=== PATIENT | female | born 1985 | race Caucasian/White ===

== ENCOUNTER 2020-10-17 14:57 | Emergency (ER) | payer OTHER, SELFPAY ==
[2020-10-17 15:15] VITALS: BP 113/76; PULSE 73; RESP 20; TEMP 36.9; O2SAT 99
[2020-10-17 16:26] LABS: Influenza Control Valid (Valid); SARS-CoV-2 Ag Negative (Negative)
--- NOTE | 2020-10-17 16:30 | ED.URI ---
HPI - URI/Sore Throat General Chief Complaint: Upper Respiratory Infection Stated Complaint: chest congestion, sore throat, vomitting, fever Time Seen by Provider: 10/17/20 15:25 Related Data Home Medications Medication Instructions Recorded Confirmed buspirone 10 mg PO DAILY 10/17/20 10/17/20 Allergies Allergy/AdvReac Type Severity Reaction Status Date / Time No Known Allergies Allergy Verified 10/17/20 15:16 Course Vital Signs Vital signs: Vital Signs Temperature 36.9 C 10/17/20 15:15 Pulse Rate 73 10/17/20 15:15 Respiratory Rate 20 10/17/20 15:15 Blood Pressure 113/76 10/17/20 15:15 Pulse Oximetry 99 10/17/20 15:15 Temperature 36.9 C 10/17/20 15:15 Pulse Rate 73 10/17/20 15:15 Respiratory Rate 20 10/17/20 15:15 Blood Pressure 113/76 10/17/20 15:15 Pulse Oximetry 99 10/17/20 15:15 MDM - URI/Sore Throat Lab Data Labs: Lab Results 10/17/20 10/17/20 Range/Units 15:59 15:59 Influenza Type A Ag Negative (Negative) Influenza Type B Ag Negative (Negative) SARS-CoV-2 Ag (Rapid) Negative (Negative) Grp A Beta Strep Ag Negative Discharge Plan Discharge Clinical Impression: Viral illness Patient Disposition: Home, Self-Care Condition: Stable Instructions: Antibiotic Form, Viral Syndrome (ED) Additional Instructions: Follow up with family doctor as needed Prescriptions: No Action buspirone 10 mg tablet 10 mg PO DAILY RF: 0 Follow-up/Referrals: Geraldo Guerra M.D. [Primary Care Provider] - Stand Alone Forms: Work/School Release IP Time of Disposition: 16:34
[2020-10-17 17:03] VITALS: BP 120/77; PULSE 80; RESP 18; TEMP 36.6; O2SAT 98
== END 2020-10-17 17:04 | disposition home or self-care (01) ==
PROVIDERS: Emergency Provider Emergency Medicine; PCP Family Medicine
DX: B34.9 Viral infection, unspecified (principal); Z20.822 Contact with and (suspected) exposure to COVID-19
CPT/HCPCS: 36415; 87081; 87426; 87804; 87880; 99282; 99283; C9803

== ENCOUNTER 2021-03-28 10:42 | Emergency (ER) | payer OTHER, SELFPAY ==
--- NOTE | ~2021-03-28 | XR_ITS ---
EXAMINATION: XR finger 5th LT min 2V EXAM DATE: 03/28/2021 11:15 INDICATION: Left 5th finger laceration posteriorly. Pain. TECHNIQUE: Left finger frontal, lateral and oblique projections obtained and reviewed. There is no prior study for comparison. FINDINGS: There are no acute left 5th finger fractures or dislocations identified. There is no subcu taneous gas. Laceration suspected over dorsal aspect proximal interphalangeal joint. There are no r adiopaque foreign bodies. IMPRESSION: No acute osseous findings. Reviewed, dictated and finalized at location A. IMPRESSION: No acute osseous findings.
[2021-03-28 10:50] VITALS: BP 100/67; PULSE 92; RESP 20; TEMP 36.8; O2SAT 99
--- NOTE | 2021-03-28 11:03 | ED.WOUNDLAC ---
HPI - Wound/Laceration General Chief Complaint: Wound/Laceration Stated Complaint: L pinky finger lac Source: patient Mode of arrival: ambulatory Limitations: no limitations History of Present Illness HPI narrative: this is 35-year-old female who presents with an injury to the anterior aspect of her left 5th finger that occurred yesterday evening on a cutting blade causing a laceration to the anterior surface of her left 5th finger currently not bleeding the area is painful with good range of motion with no numbness or tingling there is currently no drainage but there is surrounding erythema and tenderness with palpation. Onset (ago): hour(s) Location: other ( left anterior 5th finger) Place: work Patient tetanus UTD: No Context: accidental Associated symptoms: pain Related Data Home Medications Medication Instructions Recorded Confirmed buspirone 10 mg PO DAILY 10/17/20 03/28/21 Allergies Allergy/AdvReac Type Severity Reaction Status Date / Time No Known Allergies Allergy Verified 03/28/21 10:59 Review of Systems Review of Systems: All systems reviewed & are unremarkable except as noted in HPI and below PMFSH Past Medical History Medical History Depression Exam Const: General: no acute distress Orientation/consciousness: patient oriented x3 HENMT: Head: normal to inspection Eyes: Conjunctivae: conjunctivae normal Pupils: Equal, round and reactive pupils present Neck: Neck: normal visual inspection, no lymphadenopathy and no meningeal signs Chest: Chest palpation & inspection: normal inspection of the chest Resp: Effort & Inspection: normal respiratory effort Auscultation: clear to auscultation bilaterally GI: GI Palp: Yes Soft to palpation Skin: General skin exam: normal color Other: healing laceration with no drainage with surrounding erythema anterior surface of her left 5th finger Neuro: General: patient oriented x3 Extrem: General: normal to inspection and no pedal edema Psych: Mental Status: mental status grossly normal Course Course Emergency Course: xray reviewed with patient, dated patient with some tetanus and will send antibiotics to her pharmacy. Critical Care Time Critical Care Time Critical Care Time: No Discharge Plan Discharge Clinical Impression: Laceration Cellulitis Qualifiers: Site of cellulitis: extremity Site of cellulitis of extremity: finger Laterality: left Qualified Code(s): L03.012 - Cellulitis of left finger Patient Disposition: Home, Self-Care Condition: Stable Instructions: Antibiotic Form, Laceration (ED), Cellulitis (ED) Additional Instructions: advised to take medicine as prescribed and follow-up with primary care physician if symptoms persist or worsen. Prescriptions: New amoxicillin-pot clavulanate [Augmentin] 875-125 mg tablet 1 tablet PO Q12H Qty: 20 RF: 0 No Action buspirone 10 mg tablet 10 mg PO DAILY RF: 0 Follow-up/Referrals: Geraldo Guerra M.D. [Primary Care Provider] - Stand Alone Forms: Work/School Release IP
[2021-03-28] MEDS: TETANUS,DIPHTHERIA,AC PERTUSSIS ADULT 0.5 ML (ADACEL) IM (11:16)
[2021-03-28 11:44] VITALS: BP 100/67; PULSE 92; RESP 20; TEMP 36.8; O2SAT 99
== END 2021-03-28 11:46 | disposition home or self-care (01) ==
PROVIDERS: Emergency Provider Emergency Medicine; PCP Family Medicine
DX: S61.217A Laceration without foreign body of left little finger without damage to nail, initial encounter (principal); W45.8XXA Other foreign body or object entering through skin, initial encounter; L03.012 Cellulitis of left finger
CPT/HCPCS: 73140; 90471; 90715; 99283

== ENCOUNTER 2021-05-13 13:59 | Outpatient (CLI) | payer OTHER, SELFPAY ==
--- NOTE | ~2021-05-13 | XR_ITS ---
EXAMINATION: XR chest 2V DATE: 05/13/2021 14:37 INDICATION: Fatigue. Headache. Goiter. TECHNIQUE: Frontal and lateral views of the chest were obtained. COMPARISON: Chest 2 views 02/05/2008 FINDINGS: The chest demonstrates clear lungs without pneumonia, pleural effusion, or pneumothorax. Th e heart size is normal. IMPRESSION: 1. No acute cardiopulmonary disease. Reviewed, dictated and finalized at location A.
--- NOTE | ~2021-05-13 | US_ITS ---
EXAMINATION: US thyroid DATE: 05/13/2021 14:32 INDICATION: Goiter. Fatigue and headache. TECHNIQUE: Multiple ultrasound images of the thyroid were obtained. COMPARISON: None. FINDINGS: The right thyroid lobe measures 5.6 x 2.2 x 2.4 cm. The left thyroid lobe measures 5.2 x 1.9 x 1.9 c m. In the right thyroid lobe, there is a 7 mm mixed cystic and solid, very hypoechoic, [id number]-[id number] ll nodule with smooth margin without echogenic foci (TI-RADS TR4). In the left thyroid lobe, there is a 4 mm nodule. IMPRESSION: 1. Small thyroid nodules, likely not clinically significant. No follow-up is needed. Reviewed, dictated and finalized at location A. IMPRESSION: 1. Small thyroid nodules, likely not clinically significant. No follow-up is ne eded.
[2021-05-13 14:21] LABS: Add Urine Microscopic? NO; Appearance Urine Clear (Clear); Basophils Absolute Auto 0.02 K/mm3 (0.00-0.10); Basophils Percent Auto 0.2 % (0.0-1.0); Bilirubin Urine Negative (Negative); Blood Urine Negative (Negative); Color Urine Yellow (Yellow); Eosinophils Absolute Auto 0.03 K/mm3 (0.02-0.50); Eosinophils Percent Auto 0.3 % (1.0-6.0); Glucose Urine UA Negative (Negative); Hemoglobin 14.6 g/dL (12.0-15.0); Immature Granulocyte Absolute 0.03 K/mm3 (0.00-0.00); Immature Granulocyte Percent A 0.3 % (0.0-0.0); Ketones Urine Negative (Negative); Leukocyte Esterase Ur Negative (Negative); Lymphocytes Absolute Auto 1.97 K/mm3 (1.10-4.50); Lymphocytes Percent Auto 22.4 % (18.0-42.0); Mean Corpuscular Hemoglobin 30.5 pg (27.0-31.0); Mean Corpuscular Volume 89.8 fL (78.0-102.0); Mean Platelet Volume 9.4 fl (9.2-11.8); Monocytes Absolute Auto 0.45 K/mm3 (0.10-0.90); Monocytes Percent Auto 5.1 % (2.0-11.0); Neutrophils Absolute Auto 6.3 K/mm3 (1.7-7.2); Neutrophils Percent Auto 71.7 % (50.0-70.0); Nitrate Urine Negative (Negative); Platelet Count Result 356 K/mm3 (150-420); Protein Urine Negative (Negative); Red Blood Count 4.79 M/mm3 (4.20-5.40); Red Cell Distribution Width 12.9 % (11.6-14.4); Specific Grav Ur >= 1.030 (1.010-1.020); Urobilinogen Urine 0.2 mg/dL (0.2-1.0); White Blood Count 8.8 K/mm3 (4.8-10.8)
[2021-05-13 15:14] LABS: Alanine Aminotransferase 34 U/L (14-59); Albumin Level 4.3 g/dL (3.4-5.0); Alkaline Phosphatase 113 U/L (46-116); Anion Gap 15 mmol/L (8-16); Aspartate Amino Transferase 10 U/L (15-37); Bilirubin,Total 0.7 mg/dL (0.00-1.00); Blood Urea Nitrogen 19 mg/dL (7-18); Calcium 8.9 mg/dL (8.5-10.1); Carbon Dioxide 24 mmol/L (21-32); Chloride 102 mmol/L (98-108); Estimated Glomerular Filt Rate > 60; Free T3 3.14 pg/mL (2.18-3.98); Free T4 Free Thyroxine 0.95 ng/dL (0.76-1.46); Glucose 94 mg/dL (70-99); Osmolality Calculated 294 mOsm/kg (285-295); Sodium 141 mmol/L (136-145); Thyroid Stimulating Hormone 2.11 uIU/mL (0.36-3.74); Total Protein 7.7 g/dL (6.4-8.2)
[2021-05-13 15:24] LABS: CRP < 0.5 mg/dL (0.0-0.9)
[2021-05-16 04:28] LABS: Thyroglobulin 36.4 ng/mL (2.8-40.9); Thyroglobulin Antibodies <1 IU/mL (<=1)
[2021-05-23 00:38] LABS: Thyroid Peroxidase Antibodies <1 IU/mL (<9)
== END 2021-05-13 14:00 | disposition home or self-care (01) ==
LOC: CHSLAB 14:02
PROVIDERS: PCP Internal Medicine; Visit Provider Internal Medicine
DX: R53.83 Other fatigue (principal); R51.9 Headache, unspecified; E04.9 Nontoxic goiter, unspecified
CPT/HCPCS: 36415; 71046; 76536; 80053; 81003; 84432; 84439; 84443; 84481; 85025; 86038; 86140; 86376; 86800

== ENCOUNTER 2021-06-21 10:03 | Emergency (ER) | payer SELFPAY ==
--- NOTE | ~2021-06-21 | XR_ITS ---
EXAMINATION: XR ankle RT min 3V, XR foot RT min 3V DATE: 06/21/2021 10:39 INDICATION: Nontraumatic right foot and ankle pain, swelling and erythema. TECHNIQUE: 1. Anteroposterior, mortise, and lateral view of the right ankle were obtained. 2. Dorsoplantar, oblique and lateral views of the right foot were obtained. COMPARISON: None. FINDINGS: Alignment of the right foot and ankle is normal. No fracture or osteochondral lesion. Joint spaces ar e well maintained. No cortical erosions or periosteal reaction. No ankle joint effusion. Diffuse soft tissue swelling anterior and lateral to the ankle and extending over the dorsum of the foot. No soft tissue gas or radiopaque foreign bodies. IMPRESSION: 1. Soft tissue swelling at the right foot and ankle with no soft tissue gas or osseous abnormality. Reviewed, dictated and finalized at location A. ERN GRADER IMPRESSION: 1. Soft tissue swelling at the right foot and ankle with no soft tissue gas or osseous abnormality.
[2021-06-21 10:10] VITALS: BP 111/78; PULSE 99; RESP 20; TEMP 36.6; O2SAT 99
--- NOTE | 2021-06-21 10:31 | ED.LOWEXIN ---
HPI - Extremity Injury (Lower) General Chief Complaint: Extremity Injury, Lower Stated Complaint: right foot injury Time Seen by Provider: 06/21/21 10:05 Source: patient and RN notes reviewed Mode of arrival: ambulatory Limitations: no limitations History of Present Illness MD complaint: ankle injury and foot injury Type of Injury: blunt Place: home Severity: mild Severity scale (1-10): 3 Relieving factors: rest Exacerbating factors: weight bearing and movement Context: direct blow Associated symptoms: swelling Related Data Home Medications Medication Instructions Recorded Confirmed buspirone 10 mg PO DAILY 10/17/20 06/21/21 Allergies Allergy/AdvReac Type Severity Reaction Status Date / Time No Known Allergies Allergy Verified 03/28/21 10:59 Review of Systems Review of Systems: All systems reviewed & are unremarkable except as noted in HPI and below Musculoskeletal: Musculoskeletal: Reports myalgias and Reports arthralgias [facility] Past Medical History Medical History Cellulitis Depression Right ankle sprain Exam Const: General: no acute distress and alert Orientation/consciousness: patient oriented x3 Limitations: no limitations HENMT: Head: normal to inspection Ears: external ears normal and TM's normal bilaterally General nose exam: Normal external nose present and Normal nares present Face and sinus: normal facial exam Mouth: Yes moist mucous membranes Eyes: General: appearance normal, both eyes and all related structures Conjunctivae: conjunctivae normal Pupils: Equal, round and reactive pupils present Neck: Neck: normal visual inspection and no lymphadenopathy Chest: Chest palpation & inspection: normal inspection of the chest Resp: Effort & Inspection: normal respiratory effort Auscultation: clear to auscultation bilaterally Cardio: Rate: regular rate Rhythm: regular rhythm GI: GI Palp: Yes Soft to palpation and No Tenderness to palpation present (GI) Percussion: Yes normal to percussion Auscultation: normal bowel sounds : General: Yes bladder normal to palpation and Yes no CVA tenderness Back/Spine/Pelvis: Back: no CVA tenderness Skin: General skin exam: normal color Rashes: no rashes Neuro: General: patient oriented x3, moves all extremities, no meningeal signs, no focal motor deficits and CN's II-XI intact bilaterally Extrem: General: no pedal edema Other: dorsal right foot redness and swelling with no acute deformity. no neurovascular deficit. Psych: Appearance: grossly normal and well kempt Mental Status: mental status grossly normal Affect: normal affect Attitude: cooperative Thought content: Yes Normal thought content present Course Course Emergency Course: Pt was stable in the ED with less foot pain. Reevaluation(s) Reevaluation #1: VSS. patient for home with Rx and immobilization. Date: 06/21/21 Time: 10:59 Vital Signs Vital signs: Vital Signs Temperature 36.6 C 06/21/21 10:10 Pulse Rate 99 06/21/21 10:10 Respiratory Rate 20 06/21/21 10:10 Blood Pressure 111/78 06/21/21 10:10 Pulse Oximetry 99 06/21/21 10:10 Temperature 36.6 C 06/21/21 10:10 Pulse Rate 99 06/21/21 10:10 Respiratory Rate 20 06/21/21 10:10 Blood Pressure 111/78 06/21/21 10:10 Pulse Oximetry 99 06/21/21 10:10 MDM - Extremity Injury (Lower) Differential Diagnosis Differential diagnosis: Likely ankle sprain and strain and ankle fracture Medical Records Attestation: I reviewed the patient's medical records. Lab Data Attestation: I reviewed the patient's lab results. Imaging Data Attestation: I personally reviewed and interpreted this imaging study as follows: Radiologist's impression: See the report. Critical Care Time Critical Care Time Critical Care Time: No Total Critical Care Time: 0 Discharge Plan Discharge Clinical Impression: Ankle sprain and strain Cellulitis Qualifiers:
[2021-06-21] MEDS: KETOROLAC (*BKC) 60 MG/2 ML VIAL IM (11:01)
[2021-06-21] MEDS: cefTRIAXone 1 GM VIAL IM (11:02)
--- NOTE | 2021-06-21 11:07 | PC.NURSE ---
pt states she is able to get a pair of crutches from home.
--- NOTE | 2021-06-21 11:13 | PC.NURSE ---
pt declined lab draw. explained benefits. continues to decline.
[2021-06-21 11:39] VITALS: BP 112/87; PULSE 94; RESP 20; TEMP 37.2; O2SAT 98
== END 2021-06-21 11:41 | disposition home or self-care (01) ==
PROVIDERS: Emergency Provider Emergency Medicine; PCP Internal Medicine
DX: L03.115 Cellulitis of right lower limb (principal); S93.401A Sprain of unspecified ligament of right ankle, initial encounter
CPT/HCPCS: 73610; 73630; 96372; 99283; 99284; J0696; J1885

== ENCOUNTER 2021-07-01 09:31 | Emergency (ER) | payer SELFPAY ==
--- NOTE | ~2021-07-01 | CT_ITS ---
EXAMINATION: CT foot RT wo con DATE: 07/01/2021 10:37 INDICATION: Right foot abscess. TECHNIQUE: Computed tomography (CT) of the right foot and ankle was performed without intravenous con trast. Automated exposure control and iterative reconstruction technique were employed. The dose-nataly th product was 311.15 mGy-cm. COMPARISON: Right foot radiographs 06/21/2021 FINDINGS: Bone alignment is normal. No fracture. Joint spaces are normal. There is dorsal soft tissue swelling of the foot. In this area, there is a 1.8 x 1.3 x 2.2 cm fluid collection with thick wall a nd tract to the skin, consistent with abscess. There is no evidence of osteomyelitis. IMPRESSION: 1. Subcutaneous abscess with tract to the skin in the dorsum of the foot measuring 1.8 x 1.3 x 2.2 cm . Reviewed, dictated and finalized at location A. 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 Subcutaneous abscess with tract to the skin in the dorsum of the foot measur ing 1.8 x 1.3 x 2.2 cm.
[2021-07-01 10:04] VITALS: BP 129/90; PULSE 72; RESP 20; TEMP 36.7; O2SAT 96
[2021-07-01 11:09] LABS: Basophils Absolute Auto 0.02 K/mm3 (0.00-0.10); Basophils Percent Auto 0.3 % (0.0-1.0); Eosinophils Absolute Auto 0.02 K/mm3 (0.02-0.50); Eosinophils Percent Auto 0.3 % (1.0-6.0); Hematocrit 37.9 % (35.0-49.0); Hemoglobin 12.5 g/dL (12.0-15.0); Immature Granulocyte Absolute 0.05 K/mm3 (0.00-0.00); Immature Granulocyte Percent A 0.7 % (0.0-0.0); Immature Platelet Fraction Pct 1.7 % (1.0-7.0); Lymphocytes Absolute Auto 2.48 K/mm3 (1.10-4.50); Lymphocytes Percent Auto 32.3 % (18.0-42.0); Mean Corpuscular Hemoglobin 29.7 pg (27.0-31.0); Mean Platelet Volume 9.8 fl (9.2-11.8); Monocytes Absolute Auto 0.35 K/mm3 (0.10-0.90); Monocytes Percent Auto 4.6 % (2.0-11.0); Neutrophils Absolute Auto 4.8 K/mm3 (1.7-7.2); Neutrophils Percent Auto 61.8 % (50.0-70.0); Platelet Count Result 370 K/mm3 (150-420); Red Blood Count 4.21 M/mm3 (4.20-5.40); Red Cell Distribution Width 12.9 % (11.6-14.4); White Blood Count 7.7 K/mm3 (4.8-10.8)
[2021-07-01 11:16] LABS: Alanine Aminotransferase 59 U/L (14-59); Albumin Level 3.3 g/dL (3.4-5.0); Alkaline Phosphatase 110 U/L (46-116); Anion Gap 10 mmol/L (8-16); Aspartate Amino Transferase 23 U/L (15-37); Bilirubin,Total 0.1 mg/dL (0.00-1.00); Blood Urea Nitrogen 25 mg/dL (7-18); Calcium 8.6 mg/dL (8.5-10.1); Carbon Dioxide 26 mmol/L (21-32); Chloride 102 mmol/L (98-108); Estimated CRCL calculation 110 ml/min; Estimated Glomerular Filt Rate > 60; Glucose 98 mg/dL (70-99); Osmolality Calculated 290 mOsm/kg (285-295); Potassium 4.5 mmol/L (3.5-5.1); Sodium 138 mmol/L (136-145); Total Protein 7.1 g/dL (6.4-8.2)
--- NOTE | 2021-07-01 11:40 | ED.SKABFB ---
HPI - Skin/Abscess/Foreign Bdy General Chief complaint: Skin/Abscess/Foreign Body Stated complaint: SPIDER BITE Source: patient Mode of arrival: ambulatory Limitations: no limitations History of Present Illness HPI narrative: Pt has been taking antibiotics for 2 weeks and foot is getting increasingly red and swollen. She feels like dispite treatment it is worse. She does not have a fever, nor N/v. She is tolerating PO's well. psin with ambulation MD complaint: rash and abscess/boil Onset (ago): week(s) Location: L foot Severity: severe Quality: burning and sharp Pain Consistency: constant Relieving factors: none Exacerbating factors: none Associated symptoms: denies other symptoms Treatments prior to arrival: none Related Data Home Medications Medication Instructions Recorded Confirmed venlafaxine [Effexor XR] 150 mg PO DAILY 07/01/21 07/01/21 Allergies Allergy/AdvReac Type Severity Reaction Status Date / Time No Known Allergies Allergy Verified 07/01/21 10:25 Review of Systems Review of Systems: All systems reviewed & are unremarkable except as noted in HPI and below Constitutional: Constitutional: Reports no additional constitutional complaints Eyes: Eyes: Reports no additional eye complaints ENT: Reports system reviewed and no additional complaints, except as documented Cardiovascular: Cardiovascular: Reports no additional cardiovascular complaints Respiratory: Respiratory: Reports no additional respiratory complaints Gastrointestinal: Gastrointestinal: Reports no additional gastrointestinal complaints Musculoskeletal: Musculoskeletal: Reports as per HPI Neurologic: Reports system reviewed and no additional complaints, except as documented Psychiatric: Psychiatric: Reports no additional psychiatric complaints Hematologic/Lymphatic: Hematologic/Lymphatic: Reports no additional hematologic/lymphatic complaints Allergic/Immunologic: Allergic/Immunologic: Reports no additional allergic/immunologic complaints [facility] Past Medical History Medical History Cellulitis Depression Right ankle sprain Social History Social History (Updated 07/01/21 @ 11:44 by Aline Samayoa MD) Smoking status: Current every day smoker Alcohol intake: never Substance use: never Exam Const: General: no acute distress and alert Orientation/consciousness: patient oriented x3 HENMT: Head: normal to inspection Eyes: Conjunctivae: conjunctivae normal Pupils: Equal, round and reactive pupils present Neck: Neck: normal visual inspection Resp: Effort & Inspection: normal respiratory effort Auscultation: clear to auscultation bilaterally Cardio: Rate: regular rate Rhythm: regular rhythm GI: Auscultation: normal bowel sounds : General: Yes no CVA tenderness Skin: Other: erythma swelling to foot Neuro: General: patient oriented x3 and moves all extremities Extrem: General: no edema (except localized to wound area) Psych: Appearance: grossly normal Mental Status: mental status grossly normal Thought content: Yes Normal thought content present Course Vital Signs Vital signs: Vital Signs Temperature 36.7 C 07/01/21 10:04 Pulse Rate 72 07/01/21 10:04 Respiratory Rate 20 07/01/21 10:04 Blood Pressure 129/90 07/01/21 10:04 Pulse Oximetry 96 07/01/21 10:04 Temperature 36.7 C 07/01/21 10:04 Pulse Rate 72 07/01/21 10:04 Respiratory Rate 20 07/01/21 10:04 Blood Pressure 129/90 07/01/21 10:04 Pulse Oximetry 96 07/01/21 10:04 MDM - Skin/Abscess/Foreign Bdy Lab Data Result diagrams: 07/01/21 10:54 07/01/21 10:54 Labs: Lab Results 07/01/21 07/01/21 Range/Units 10:54 10:54 WBC 7.7 (4.8-10.8) K/mm3 RBC 4.21 (4.20-5.40) M/mm3 Hgb 12.5 (12.0-15.0) g/dL Hct 37.9 (35.0-49.0) % MCV 90.0 (78.0-102.0) fL MCH 29.7 (27.0-31.0) pg MCHC 33.0
[2021-07-01 11:54] VITALS: BP 136/73; PULSE 87; RESP 20; TEMP 36.8; O2SAT 99
--- NOTE | 2021-07-07 13:48 | PC.NURSE ---
final culture report received. staphylococcus aureus positive. pt was seen on 07/01/[address] Marley after discharged from this ER. Dr. Marley prescribed cipro and doxycycline. no changes needed in care at this time.
== END 2021-07-01 11:57 | disposition home or self-care (01) ==
PROVIDERS: Emergency Provider Emergency Medicine; PCP Internal Medicine
DX: L03.90 Cellulitis, unspecified (principal)
CPT/HCPCS: 36415; 73700; 80053; 85025; 85055; 87070; 87147; 87186; 87205; 99282; 99284

== ENCOUNTER 2021-08-03 08:22 | Emergency (ER) | payer OTHER, SELFPAY ==
[2021-08-03 08:49] VITALS: BP 128/84; PULSE 105; RESP 20; TEMP 36.1; O2SAT 100
== END 2021-08-03 08:50 | disposition left against medical advice (07) ==
PROVIDERS: Emergency Provider Emergency Medicine; PCP Internal Medicine
DX: Z04.3 Encounter for examination and observation following other accident (principal)
CPT/HCPCS: 99199

== ENCOUNTER 2021-09-09 15:25 | Outpatient (CLI) | payer BC, SELFPAY ==
--- NOTE | ~2021-09-09 | XR_ITS ---
EXAMINATION: XR chest 2V 09/09/2021 15:54 INDICATION: Cough with shortness of breath PROCEDURE: 2 view chest COMPARISON: 05/13/2021 FINDINGS: The lungs are clear. The cardiomediastinal silhouette is within normal limits. There are no pleural effusions. There is no pneumothorax suspected. IMPRESSION: 1: NO ACUTE CARDIOPULMONARY DISEASE. Reviewed, dictated and finalized at location B. ING MACHINE OPERATOR AUTOMATIC
[2021-09-09 15:59] LABS: Basophils Absolute Auto 0.01 K/mm3 (0.00-0.10); Basophils Percent Auto 0.1 % (0.0-1.0); Eosinophils Absolute Auto 0.01 K/mm3 (0.02-0.50); Eosinophils Percent Auto 0.1 % (1.0-6.0); Hematocrit 37.1 % (35.0-49.0); Hemoglobin 12.3 g/dL (12.0-15.0); Immature Granulocyte Absolute 0.02 K/mm3 (0.00-0.00); Immature Granulocyte Percent A 0.3 % (0.0-0.0); Lymphocytes Absolute Auto 1.67 K/mm3 (1.10-4.50); Mean Corpuscular HGB Conc 33.2 g/dL (32.0-36.0); Mean Corpuscular Hemoglobin 30.1 pg (27.0-31.0); Mean Corpuscular Volume 90.7 fL (78.0-102.0); Mean Platelet Volume 9.9 fl (9.2-11.8); Monocytes Absolute Auto 0.38 K/mm3 (0.10-0.90); Neutrophils Absolute Auto 5.5 K/mm3 (1.7-7.2); Neutrophils Percent Auto 72.5 % (50.0-70.0); Platelet Count Result 263 K/mm3 (150-420); Red Blood Count 4.09 M/mm3 (4.20-5.40); Red Cell Distribution Width 13.1 % (11.6-14.4); White Blood Count 7.6 K/mm3 (4.8-10.8)
[2021-09-09 16:23] LABS: Alanine Aminotransferase 23 U/L (14-59); Albumin Level 3.5 g/dL (3.4-5.0); Alkaline Phosphatase 90 U/L (46-116); Anion Gap 10 mmol/L (8-16); Aspartate Amino Transferase 11 U/L (15-37); Bilirubin,Total 0.2 mg/dL (0.00-1.00); Blood Urea Nitrogen 12 mg/dL (7-18); Calcium 8.7 mg/dL (8.5-10.1); Carbon Dioxide 25 mmol/L (21-32); Chloride 106 mmol/L (98-108); Estimated Glomerular Filt Rate > 60; Glucose 91 mg/dL (70-99); Osmolality Calculated 291 mOsm/kg (285-295); Potassium 4.1 mmol/L (3.5-5.1); Sodium 141 mmol/L (136-145); Total Protein 6.5 g/dL (6.4-8.2)
[2021-09-09 16:39] LABS: SARS-CoV-2 RNA PCR Negative (Negative)
== END 2021-09-09 15:26 | disposition home or self-care (01) ==
LOC: CHSLAB 15:28
PROVIDERS: PCP Internal Medicine; Visit Provider Internal Medicine
DX: R05.9 Cough, unspecified (principal); J06.9 Acute upper respiratory infection, unspecified; Z20.822 Contact with and (suspected) exposure to COVID-19
CPT/HCPCS: 36415; 71046; 80053; 85025; C9803; U0003; U0005

== ENCOUNTER 2022-04-04 22:36 | Emergency (ER) | payer BC, SELFPAY ==
--- NOTE | 2022-04-04 22:40 | PC.NURSE ---
[id number] physician underwriter went to get patient, mother in waiting room patient not in building. Mother stated She went to car. [id number] patient cont not in waiting room, mother left building too
[2022-04-04 22:46] VITALS: BP 122/69; PULSE 88; RESP 20; TEMP 37; O2SAT 96
--- NOTE | 2022-04-04 22:46 | ED.EXTPRO ---
HPI - Extremity Problem General Chief complaint: Extremity Problem,Nontraumatic Stated complaint: L left pain 3-4 days Time Seen by Provider: 04/04/22 22:46 History of Present Illness HPI Narrative: 36-year-old female patient is here with complaints of pain to the lower rose left side for last 2-3 days. Apparently she was wearing flip-flops but does not recall any injury. The patient states that she usually walks barefoot. She walked into the ER without any shoe on the left foot. She is also complaining of pain on the outside of the lower leg. Denies any numbness or tingling. Related Data Home Medications Medication Instructions Recorded Confirmed venlafaxine 150 mg 150 mg PO DAILY 07/01/21 08/03/21 capsule,extended release 24 hr (Effexor XR) Allergies Allergy/AdvReac Type Severity Reaction Status Date / Time No Known Allergies Allergy Verified 08/03/21 08:58 Review of Systems Review of Systems: All systems reviewed & are unremarkable except as noted in HPI and below PMFSH Past Medical History Medical History Cellulitis Depression Right ankle sprain Social History Social History Smoking status: Current every day smoker Alcohol intake: never Substance use: never Exam Narrative: Alert female patient in no acute distress. Stable vital signs. HEENT appears normal. No obvious respiratory distress. Left lower leg and ankle show no obvious swelling or deformity. There is no discoloration to the skin. There is minimal tenderness over the lower tibialis anterior area. There is also some tenderness along the peroneal muscles. The ankle joint has a full range of motion. Distal neurovascular status in the toes is intact. The patient does have a flat arch on the left foot. The left sole of the foot appears very dirty secondary to patient have been barefoot outdoors. Rest of the physical examination is normal. Course Course Emergency Course: Patient has been reassured about the foot being flat and her not wearing proper arch support causing her the pain in the ankle and move lower leg area. She has been advised to avoid wearing flip-flops and wear shoes with the proper arch support. Patient does have a step at home and she can use that to further enhance the support of the ankle area. She has been advised to use ibuprofen and Tylenol together to get relief from pain. Discharge Plan Discharge Prescriptions: No Action venlafaxine [Effexor XR] 150 mg capsule,extended release 24hr 150 mg PO DAILY Follow-up/Referrals: Medhat Bradley MD [Primary Care Provider] -
--- NOTE | 2022-04-04 22:54 | PC.NURSE ---
states who is MD, account underwriter gave name she asked if female --account underwriter said yes,pt state thank god hope she give me pain meds none of the male MDs will
[2022-04-04 23:06] VITALS: BP 128/87; PULSE 88; RESP 18; TEMP 36.6; O2SAT 98
== END 2022-04-04 23:07 | disposition home or self-care (01) ==
PROVIDERS: Emergency Provider Emergency Medicine; PCP Internal Medicine
DX: M21.42 Flat foot [pes planus] (acquired), left foot (principal)
CPT/HCPCS: 99281

== ENCOUNTER 2022-04-26 21:38 | Emergency (ER) | payer BC, SELFPAY ==
[2022-04-26 21:47] VITALS: BP 100/65; PULSE 85; RESP 16; TEMP 36.6; O2SAT 97
--- NOTE | 2022-04-26 21:57 | ED.URI ---
HPI - URI/Sore Throat General Chief Complaint: Upper Respiratory Infection Stated Complaint: dizzy, fever, hard time swallowing, hands tingling Time Seen by Provider: 04/26/22 21:47 Source: patient Mode of arrival: ambulatory History of Present Illness HPI Narrative: 36-year-old female, smoker presents to the ER with a 2 day history of -- cough with increased mucoid expectoration -- sore throat with odynophagia -- fever with a T-max of 102? -- dizziness. She feels lightheaded. MD elicited complaint: fever and cough Onset (ago): day(s) ( Started 2 days ago) Consistency: constant Severity: moderate Able to tolerate fluids by mouth: Yes Exacerbating factors: nothing Relieving factors: nothing Associated symptoms: denies other symptoms, fever, sore throat and cough Treatments prior to arrival: none Related Data Home Medications Medication Instructions Recorded Confirmed venlafaxine 150 mg 150 mg PO DAILY 07/01/21 04/26/22 capsule,extended release 24 hr (Effexor XR) Allergies Allergy/AdvReac Type Severity Reaction Status Date / Time No Known Allergies Allergy Verified 04/26/22 21:50 Review of Systems Review of Systems: All systems reviewed & are unremarkable except as noted in HPI and below Constitutional: Constitutional: Reports as per HPI and Reports no additional constitutional complaints Eyes: Eyes: Reports as per HPI and Reports no additional eye complaints ENT: Reports system reviewed and no additional complaints, except as documented, Reports as per HPI and Reports sore throat Cardiovascular: Cardiovascular: Reports as per HPI Respiratory: Respiratory: Reports as per HPI, Reports no additional respiratory complaints, Reports chest congestion and Reports cough Gastrointestinal: Gastrointestinal: Reports as per HPI and Reports no additional gastrointestinal complaints Genitourinary: Genitourinary: Reports no additional female genitourinary complaints Musculoskeletal: Musculoskeletal: Reports no additional musculoskeletal complaints Integumentary/Breasts: Skin/Breast: Reports system reviewed and no additional complaints, except as docu and Reports as per HPI Neurologic: Reports system reviewed and no additional complaints, except as documented and Reports as per HPI Psychiatric: Psychiatric: Reports no additional psychiatric complaints and Reports as per HPI Endocrine: Endocrine: Reports no additional endocrine complaints and Reports as per HPI Hematologic/Lymphatic: Hematologic/Lymphatic: Reports no additional hematologic/lymphatic complaints and Reports as per HPI Allergic/Immunologic: Allergic/Immunologic: Reports no additional allergic/immunologic complaints and Reports as per HPI [facility] Past Medical History Medical History Cellulitis Depression Right ankle sprain Family History Family History Other Family history of malignant neoplasm Social History Social History Smoking status: Current every day smoker Alcohol intake: never Substance use: never Exam Const: General: no acute distress Nutritional Appearance: obese Orientation/consciousness: patient oriented x3 Limitations: no limitations HENMT: Head: normal to inspection Ears: external ears normal Face/Nose/Sinus: Normal external nose present Face and sinus: normal facial exam Mouth: Yes Normal oral and palatal mucosa present Throat: posterior oropharynx normal Eyes: Conjunctivae: conjunctivae normal Pupils: Equal, round and reactive pupils present EOM: EOMs intact bilaterally Direct Ophthalmoscopy: no photophobia Neck: Neck: normal visual inspection, no lymphadenopathy and no meningeal signs Chest: Chest palpation & inspection: normal inspection of the chest Resp: Effort & Inspection: normal respiratory effort Auscultation: rhonchi and dim
[2022-04-26] MEDS: AZITHROMYCIN 250 MG TABLET 500 MG PO (22:49)
[2022-04-26 22:53] LABS: Influenza A QL RT-PCR Negative (Negative); Influenza B QL RT-PCR Negative (Negative); SARS-CoV-2 RNA PCR Negative (Negative)
[2022-04-26 23:05] VITALS: BP 110/65; PULSE 72; RESP 16; O2SAT 96
[2022-04-26 23:14] LABS: Strep Group A RT-PCR Not Detected (Negative)
[2022-04-26 23:24] VITALS: BP 111/66; PULSE 88; RESP 18; TEMP 37.2; O2SAT 98
== END 2022-04-26 23:25 | disposition home or self-care (01) ==
PROVIDERS: Emergency Provider Internal Medicine Critical Care Medicine
DX: J06.9 Acute upper respiratory infection, unspecified (principal); J40 Bronchitis, not specified as acute or chronic; Z20.822 Contact with and (suspected) exposure to COVID-19
CPT/HCPCS: 87502; 87651; 99283; A9270; C9803; U0003; U0005

== ENCOUNTER 2022-10-08 20:35 | Emergency (ER) | payer BC, SELFPAY ==
[2022-10-08 20:43] VITALS: BP 110/81; PULSE 89; RESP 20; TEMP 36.6; O2SAT 96
--- NOTE | 2022-10-08 20:55 | PC.NURSE ---
Pt seen walking out of ER c mom and stated as she walked out she states she wasn't waiting because she was in too much pain. Pt left room before provider could see her and wouldn't allow anyone, including this RN to talk c her.
== END 2022-10-08 20:57 | disposition left against medical advice (07) ==
LOC: CHSED 10-11 09:14
PROVIDERS: Emergency Provider Preventive Medicine Aerospace Medicine; PCP Physician Assistant
DX: K08.89 Other specified disorders of teeth and supporting structures (principal)
CPT/HCPCS: 99199

== ENCOUNTER 2022-10-31 21:19 | Emergency (ER) | payer BC, SELFPAY ==
[2022-10-31 21:21] VITALS: BP 121/76; PULSE 120; RESP 18; TEMP 36.5; O2SAT 100
--- NOTE | 2022-10-31 21:24 | ED.GENADULT ---
HPI - General Adult General Chief complaint: Dental/Oral Stated complaint: Toothpain History of Present Illness HPI narrative: Janie is a 37F with a PMH of depression that presented to the ED with dental pain. It started 3 days ago and has become worse since. It is not relieved with OTC meds and she was not able to see a dentist. No fevers, dysphagia, dyspnea or chest pain. She did take too many ibuprofen and is now having some epigastric discomfort. Related Data Home Medications Medication Instructions Recorded Confirmed venlafaxine 150 mg 150 mg PO DAILY 07/01/21 10/31/22 capsule,extended release 24 hr (Effexor XR) naltrexone 50 mg tablet 50 mg PO DAILY 10/31/22 10/31/22 Allergies Allergy/AdvReac Type Severity Reaction Status Date / Time No Known Allergies Allergy Verified 10/31/22 21:30 Review of Systems Review of Systems: All systems reviewed & are unremarkable except as noted in HPI and below PMFSH Past Medical History Medical History Cellulitis Depression Right ankle sprain Family History Family History Other Family history of malignant neoplasm Social History Social History Smoking status: Current every day smoker Alcohol intake: never Substance use: never Exam Const: General: healthy appearing and no acute distress Nutritional Appearance: well nourished HENMT: Head: normal to inspection Ears: external ears normal Face/Nose/Sinus: Normal external nose present Eyes: Conjunctivae: conjunctivae normal Pupils: Equal, round and reactive pupils present Chest: Chest palpation & inspection: normal inspection of the chest Resp: Effort & Inspection: normal respiratory effort Auscultation: clear to auscultation bilaterally Cardio: Rate: regular rate Rhythm: regular rhythm GI: Inspection: non-distended GI Palp: Yes Tenderness to palpation present (GI) Other: epigastric tenderness Skin: General skin exam: normal color Rashes: no rashes Neuro: General: patient oriented x3 and moves all extremities Cranial nerves: Yes Nystagmus not present Speech: normal speech Course Course Emergency Course: Further history revealed that 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 She denies any issues with pain meds and she denied being on naltrexone. Vital Signs Vital signs: Vital Signs Temperature 97.7 F 10/31/22 21:21 Pulse Rate 120 H 10/31/22 21:21 Respiratory Rate 18 10/31/22 21:21 Blood Pressure 121/76 10/31/22 21:21 Pulse Oximetry 100 10/31/22 21:21 Oxygen Delivery Room Air 10/31/22 21:21 Temperature 97.7 F 10/31/22 21:21 Pulse Rate 120 H 10/31/22 21:21 Respiratory Rate 18 10/31/22 21:21 Blood Pressure 121/76 10/31/22 21:21 Pulse Oximetry 100 10/31/22 21:21 Oxygen Delivery Room Air 10/31/22 21:21 Medical Decision Making Vital Signs Vital Signs: Vital Signs Temperature 97.7 F 10/31/22 21:21 Pulse Rate 120 H 10/31/22 21:21 Respiratory Rate 18 10/31/22 21:21 Blood Pressure 121/76 10/31/22 21:21 Pulse Oximetry 100 10/31/22 21:21 Oxygen Delivery Room Air 10/31/22 21:21 Temperature 97.7 F 10/31/22 21:21 Pulse Rate 120 H 10/31/22 21:21 Respiratory Rate 18 10/31/22 21:21 Blood Pressure 121/76 10/31/22 21:21 Pulse Oximetry 100 10/31/22 21:21 Oxygen Delivery Room Air 10/31/22 21:21 Discharge Plan Discharge Clinical Impression: Dental abscess Patient Disposition: Home, Self-Care Condition: Stable Instructions: Dental Abscess (ED) Additional Instructions: Please follow up with a dentist ABRAHAN Prescriptions: New clindamycin HCl [Cleocin HCl] 150 mg capsule 450 mg PO Q8H 5 Days Qty: 45 0RF pantoprazole 40 mg tablet,delayed release (DR/EC) 40 mg PO HS Qty: 7 0RF oxycodone 5
[2022-10-31] MEDS: HYDROcodone/acetaminophen (*CRX) 5-325 MG TABLET 1 TAB PO (21:49)
[2022-10-31] MEDS: CLINDAMYCIN HCL 150 MG CAP 450 MG PO (21:49)
[2022-10-31] MEDS: PANTOPRAZOLE 40 MG TABLET PO (21:50)
[2022-10-31 22:28] VITALS: BP 120/72; PULSE 111; RESP 17; TEMP 36.8; O2SAT 100
== END 2022-10-31 22:31 | disposition home or self-care (01) ==
PROVIDERS: Emergency Provider Family Medicine; PCP Physician Assistant
DX: K04.7 Periapical abscess without sinus (principal); F17.200 Nicotine dependence, unspecified, uncomplicated
CPT/HCPCS: 99283; A9270

== ENCOUNTER 2024-02-18 07:22 | Emergency (ER) | payer OTHER, SELFPAY ==
--- NOTE | ~2024-02-18 | XR_ITS ---
EXAMINATION: [id number] DATE: 02/18/2024 07:53 INDICATION: Right chest wall pain. TECHNIQUE: A frontal view of the chest and 2 views on 3 radiographs of the right ribs were obtained. COMPARISON: Chest 2 views 09/09/2021 FINDINGS: There is no pneumonia, pleural effusion, or pneumothorax. The heart size is normal. IMPRESSION: 1. No rib fracture. Reviewed, dictated and finalized at location A. IMPRESSION: 1. No rib fracture.
[2024-02-18 07:26] VITALS: BP 105/67; PULSE 87; RESP 22; TEMP 36.4; O2SAT 98
--- NOTE | 2024-02-18 07:28 | ED_ITS ---
HPI - General Adult General Chief complaint: Unspecified Stated complaint: rib pain Related Data Home Medications Medication Instructions Recorded Confirmed venlafaxine 150 mg 150 mg PO DAILY 07/01/21 10/31/22 capsule,extended release 24 hr (Effexor XR) naltrexone 50 mg tablet 50 mg PO DAILY 10/31/22 10/31/22 Allergies Allergy/AdvReac Type Severity Reaction Status Date / Time No Known Allergies Allergy Verified 10/31/22 21:30 [facility], [facility] Past Medical History Medical History Cellulitis Depression Right ankle sprain Family History Family History Other Family history of malignant neoplasm Social History Social History Smoking status: Current every day smoker Alcohol intake: never Substance use: never Discharge Plan Discharge Prescriptions: No Action venlafaxine [Effexor XR] 150 mg capsule,extended release 24hr 150 mg PO DAILY naltrexone 50 mg tablet 50 mg PO DAILY clindamycin HCl [Cleocin HCl] 150 mg capsule 450 mg PO Q8H 5 Days Qty: 45 0RF pantoprazole 40 mg tablet,delayed release (DR/EC) 40 mg PO HS Qty: 7 0RF oxycodone 5 mg tablet 5 mg PO Q8H PRN (Reason: pain) Qty: 10 0RF Follow-up/Referrals: UNKNOWN,DOCTOR [Primary Care Provider] -
--- NOTE | 2024-02-18 07:29 | ED.CHESTPAIN ---
HPI - Chest Pain General Chief Complaint: Unspecified Stated Complaint: rib pain Source: patient Mode of arrival: ambulatory Limitations: no limitations History of Present Illness HPI narrative: 38-year-old female with a history of anxiety / depression, smoker presents to the ED ED with a 2 day history of -- right lateral chest wall pain which is made worse by deep breathing. No fever. Chronic cough without any worsening. MD complaint: chest pain Onset (ago): day(s) ( Two days) Timing of current episode: episodic Prior episodes: No Onset: during exertion Pain location: right chest Pain radiation: none Severity: moderate Quality: sharp Relieving factors: rest Exacerbating factors: inspiration Risk Factors Coronary artery disease risk factors: smoking history Thoracic aortic dissection risk factors: none Related Data On Oral Contraceptives: No Home Medications Medication Instructions Recorded Confirmed bupropion HCl 300 mg 24 hr tablet, 300 mg PO DAILY 02/18/24 02/18/24 extended release hydroxyzine HCl 50 mg tablet 100 mg PO QID 02/18/24 02/18/24 modafinil 100 mg tablet 100 mg PO TID 02/18/24 02/18/24 naltrexone 50 mg tablet 50 mg PO DAILY 02/18/24 02/18/24 prazosin 2 mg capsule 2 mg PO BID 02/18/24 02/18/24 quetiapine 100 mg tablet 100 mg PO DAILY 02/18/24 02/18/24 topiramate 200 mg tablet 200 mg PO DAILY 02/18/24 02/18/24 venlafaxine 150 mg 150 mg PO DAILY 02/18/24 02/18/24 capsule,extended release 24 hr venlafaxine 75 mg capsule,extended 75 mg PO DAILY 02/18/24 02/18/24 release 24 hr Allergies Allergy/AdvReac Type Severity Reaction Status Date / Time No Known Allergies Allergy Verified 10/31/22 21:30 Review of Systems Review of Systems: All systems reviewed & are unremarkable except as noted in HPI and below Constitutional: Constitutional: Reports as per HPI and Reports no additional constitutional complaints Eyes: Eyes: Reports as per HPI and Reports no additional eye complaints ENT: Reports system reviewed and no additional complaints, except as documented and Reports as per HPI Cardiovascular: Cardiovascular: Reports as per HPI and Reports no additional cardiovascular complaints Respiratory: Respiratory: Reports as per HPI, Reports no additional respiratory complaints and Reports cough Comments: pleuritic right chest wall pain. No shortness of breath Gastrointestinal: Gastrointestinal: Reports as per HPI and Reports no additional gastrointestinal complaints Genitourinary: Genitourinary: Reports no additional female genitourinary complaints and Reports as per HPI Musculoskeletal: Musculoskeletal: Reports no additional musculoskeletal complaints and Reports as per HPI Integumentary/Breasts: Skin/Breast: Reports system reviewed and no additional complaints, except as docu and Reports as per HPI Neurologic: Reports system reviewed and no additional complaints, except as documented and Reports as per HPI Psychiatric: Psychiatric: Reports no additional psychiatric complaints, Reports as per HPI and Reports anxiety Comments: patient is hyperventilating with numbness and tingling of her fingertips and toes Endocrine: Endocrine: Reports no additional endocrine complaints and Reports as per HPI Hematologic/Lymphatic: Hematologic/Lymphatic: Reports no additional hematologic/lymphatic complaints and Reports as per HPI Allergic/Immunologic: Allergic/Immunologic: Reports no additional allergic/immunologic complaints and Reports as per HPI PMFSH Past Medical History Medical History Cellulitis Depression Right ankle sprain Family History Family History Other Family history of malignant neoplasm Social History Social History Smoking status: Current every day smoker Alcohol intake: never Substance use: never
[2024-02-18] MEDS: KETOROLAC 30 MG/ML VIAL (*BKC) IM (08:18)
[2024-02-18 08:36] VITALS: BP 116/61; PULSE 73; RESP 16; TEMP 36.5; O2SAT 99
== END 2024-02-18 08:36 | disposition home or self-care (01) ==
LOC: CHSED 08:15
PROVIDERS: Emergency Provider Internal Medicine Critical Care Medicine; PCP Family Medicine
DX: R07.89 Other chest pain (principal); F17.200 Nicotine dependence, unspecified, uncomplicated; Z79.899 Other long term (current) drug therapy
CPT/HCPCS: 71101; 96372; 99283; J1885

== ENCOUNTER 2024-04-01 12:42 | Emergency (ER) | payer OTHER, SELFPAY ==
--- NOTE | ~2024-04-01 | XR_ITS ---
EXAMINATION: XR chest 1V portable DATE: 04/01/2024 13:04 INDICATION: One week of cough TECHNIQUE: frontal view of the chest was obtained. COMPARISON: Chest radiograph dated 09/09/2021 FINDINGS: Subtle patchy left basilar airspace opacity apex of the left hemidiaphragm. No other airspace opaciti es, pulmonary edema, pleural effusion or pneumothorax. The cardiomediastinal silhouette is normal. Vi sualized bones and soft tissues are unremarkable. IMPRESSION: 1. Subtle left basilar opacity which could represent pneumonia or atelectasis. Reviewed, dictated and finalized at location A.
[2024-04-01 12:42] VITALS: O2SAT 100
[2024-04-01 12:43] VITALS: BP 134/97; PULSE 87; RESP 22; TEMP 37.1; O2SAT 99
--- NOTE | 2024-04-01 13:30 | ED.GENADULT ---
HPI - General Adult General Chief complaint: Upper Respiratory Infection Stated complaint: congested Time Seen by Provider: 04/01/24 13:29 Source: patient Mode of arrival: ambulatory Limitations: no limitations History of Present Illness HPI narrative: 38-year-old white female complains of cough productive of green sputum for the last week associated with some wheezing. She has used an inhaler in the past. But does not have any history of asthma that she knows of. She has has a hoarse voice and sore throat no fever rash problems eating or drinking voiding or stooling. Just feels generally weak. Has no known drug allergies. Denies any bleeding or bruising lumps or bumps swelling pain elsewhere or any other complaints. Related Data Home Medications Medication Instructions Recorded Confirmed bupropion HCl 300 mg 24 hr tablet, 300 mg PO DAILY 02/18/24 04/01/24 extended release hydroxyzine HCl 50 mg tablet 100 mg PO QID 02/18/24 04/01/24 modafinil 100 mg tablet 100 mg PO TID 02/18/24 04/01/24 naltrexone 50 mg tablet 50 mg PO DAILY 02/18/24 04/01/24 prazosin 2 mg capsule 2 mg PO BID 02/18/24 04/01/24 quetiapine 100 mg tablet 100 mg PO DAILY 02/18/24 04/01/24 topiramate 200 mg tablet 200 mg PO DAILY 02/18/24 04/01/24 venlafaxine 150 mg 150 mg PO DAILY 02/18/24 04/01/24 capsule,extended release 24 hr venlafaxine 75 mg capsule,extended 75 mg PO DAILY 02/18/24 04/01/24 release 24 hr Allergies Allergy/AdvReac Type Severity Reaction Status Date / Time No Known Allergies Allergy Verified 04/01/24 13:14 Review of Systems Review of Systems: All systems reviewed & are unremarkable except as noted in HPI and below PMFSH Past Medical History Medical History Cellulitis Depression Right ankle sprain Family History Family History Other Family history of malignant neoplasm Social History Social History Smoking status: Current every day smoker Alcohol intake: never Substance use: never Exam Narrative: White female patient with no apparent distress.? Head normocephalic, atraumatic.? Eyes conjunctiva pink sclera nonicteric.? Extraocular movements are intact.? Ears externally normal.? Oropharynx is clear with moist mucous membranes without exudates.? Neck is supple nontender no lymphadenopathy.? Back is nontender.? Lungs are clear.? Heart is regular rate and rhythm without murmurs gallops or rubs.? Chest wall nontender. Abdomen is soft and nontender no hepatosplenomegaly or masses no CVA tenderness no abdominal bruits.? Extremities no cyanosis clubbing or edema.? Skin is warm and dry without rashes or lesions.? Neurological patient is alert and oriented x4.? Motor and sensory grossly intact.? Gait is normal. Course Vital Signs Vital signs: Vital Signs Pulse Oximetry 100 04/01/24 12:42 Oxygen Delivery Room Air 04/01/24 12:42 Temperature 36.7 C 04/01/24 14:32 Pulse Rate 96 04/01/24 14:32 Respiratory Rate 17 04/01/24 14:32 Blood Pressure 142/96 H 04/01/24 14:32 Pulse Oximetry 99 04/01/24 14:32 Oxygen Delivery Room Air 04/01/24 14:32 Medical Decision Making [facility] Narrative Medical decision making narrative: ? Patient placed in room: Three ? History and physical was performed. COVID flu RSV strep Chest x-ray: Per radiologist Subtle left basilar opacity which could represent pneumonia or atelectasis. Independent Historian: patient External Source Review: Differential Dx includes but not limited to: COVID flu RSV strep bronchitis pneumonia Medications were Reviewed: Medications given: Independently Interpreted by me: Shared decision Making: evaluation discussed all questions were asked and answered patient agreed with plan we would give her doxycycline 100 mg twice a day f
[2024-04-01 13:57] VITALS: BP 142/73; PULSE 87; RESP 20; TEMP 36.3; O2SAT 100
[2024-04-01 14:07] LABS: Influenza A QL RT-PCR Negative (Negative); Influenza B QL RT-PCR Negative (Negative); RSV RNA, RT-PCR Negative (Negative); SARS-CoV-2 RNA PCR Negative (Negative)
[2024-04-01 14:32] VITALS: BP 142/96; PULSE 96; RESP 17; TEMP 36.7; O2SAT 99
== END 2024-04-01 14:32 | disposition home or self-care (01) ==
PROVIDERS: Emergency Provider Emergency Medicine
DX: J18.9 Pneumonia, unspecified organism (principal); F17.200 Nicotine dependence, unspecified, uncomplicated; Z79.899 Other long term (current) drug therapy; Z20.822 Contact with and (suspected) exposure to COVID-19
CPT/HCPCS: 71045; 87637; 99283

== ENCOUNTER 2024-07-30 16:42 | Emergency (ER) | payer OTHER, SELFPAY ==
--- NOTE | 2024-07-30 16:43 | ECG_ITS ---
Test Date: 2024-07-30 16:52:35 Measurements Intervals [place] Rate: 90 P: 78 AR: 139 QRS: 79 QRSD: 82 T: 62 QT: 351 QTc: 432 Interpretive Statements SINUS RHYTHM No previous ECG available for comparison Electronically Signed On 07-30-2024 21:43:59 [employer] by Kevin Estevez M.D.
[2024-07-30 16:44] VITALS: BP 141/91; PULSE 91; RESP 18; TEMP 36.4; O2SAT 100
--- NOTE | 2024-07-30 16:45 | ED_ITS ---
HPI - Nausea/Vomiting/Diarrhea General Chief complaint: Abdominal Pain Stated complaint: abdominal pain Time Seen by Provider: 07/30/24 16:43 History of Present Illness HPI Narrative: Pt presents with vomiting and diarrhea for the last few days. Pt complains of heartburn up into her chest from the vomiting. Pt says she is not able to keep anything down by mouth. Pt denies fever or sick contacts. Related Data Home Medications ?Medication ?Instructions ?Recorded ?Confirmed ?Last Taken ?Type venlafaxine 150 mg 300 mg PO DAILY 02/18/24 07/30/24 Unknown History capsule,extended release 24 hr Allergies Allergy/AdvReac Type Severity Reaction Status Date / Time No Known Allergies Allergy Verified 07/30/24 16:42 Review of Systems 2 Review of Systems: All systems reviewed & are unremarkable except as noted in HPI and below PMFSH Past Medical History Medical History Cellulitis Depression Right ankle sprain Family History Family History Other Family history of malignant neoplasm Social History Social History Smoking status: Current every day smoker Alcohol intake: never Substance use: never Exam 2 Const: General: healthy appearing and no acute distress Nutritional Appearance: well nourished Orientation/consciousness: patient oriented x3 Limitations: no limitations HENMT: Mouth: Yes Normal oral and palatal mucosa present Resp: Effort & Inspection: normal respiratory effort Auscultation: clear to auscultation bilaterally Cardio: Rate: regular rate Rhythm: regular rhythm GI: GI Palp: Yes Soft to palpation and No Tenderness to palpation present (GI) Auscultation: Hyperactive bowel sounds present Back/Spine/Pelvis: Back: no CVA tenderness Skin: General skin exam: normal color Rashes: no rashes Wounds: no wounds Neuro: General: patient oriented x3, moves all extremities, no meningeal signs and no focal motor deficits Speech: normal speech Extrem: General: normal to inspection and no clubbing, cyanosis or edema Psych: Mental Status: mental status grossly normal Affect: normal affect Attitude: cooperative Course Vital Signs Vital signs: Vital Signs Temperature 97.5 F L 07/30/24 16:44 Pulse Rate 91 07/30/24 16:44 Respiratory Rate 18 07/30/24 16:44 Blood Pressure 141/91 H 07/30/24 16:44 Pulse Oximetry 100 07/30/24 16:44 Oxygen Delivery Room Air 07/30/24 16:44 Temperature 97.5 F L 07/30/24 16:44 Pulse Rate 91 07/30/24 16:44 Respiratory Rate 18 07/30/24 16:44 Blood Pressure 141/91 H 07/30/24 16:44 Pulse Oximetry 100 07/30/24 16:44 Oxygen Delivery Room Air 07/30/24 16:44 MDM - Nausea/Vomiting/Diarrhea MDM Narrative Medical decision making narrative: Pt presents with vomiting and diarhea and heartburn type pain into chest. will rule out cad but likely gastroenteritis. no ruq tenderness and minimal epigastric tenderness so coubt GB or pancreatitis but will check labs to be sure and give fluids and pepcid and zofran. labs look fine. pt nausea better still has some burning. gave gi cocktail and feels better. home on zofran and pepcid. Lab Data 07/30/24 16:59 07/30/24 16:59 Labs: Lab Results 07/30/24 Range/Units 16:59 WBC 8.1 (4.8-10.8) K/mm3 RBC 4.44 (4.20-5.40) M/mm3 Hgb 12.9 (12.0-15.0) g/dL Hct 39.8 (35.0-49.0) % MCV 89.6 (78.0-102.0) fL MCH 29.1 (27.0-31.0) pg MCHC 32.4 (32-36) g/dL RDW 13.5 (11.6-14.4) % Plt Count 304 (150-420) K/mm3 MPV 9.2 (9.2-11.8) fl Immature Gran % (Auto) 0.4 H (0.0-0.0) % Neut % (Auto) 70.6 H (50.0-70.0) % Lymph % (Auto) 23.1 (18.0-42.0) % Haines % (Auto) 5.8 (2.0-11.0) % Eos % (Auto) 0.0 L (1.0-6.0) % Baso % (Auto) 0.1 (0.0-1.0) % Lymph # (Auto) 1.87 (1.10-4.50) K/mm3 Haines # (Auto) 0.47 (0.10-0.90) K/mm3 Eos # (Auto) 0.00 L (0.02-0.50) K/mm3 Baso # (Auto) 0.01 (0.00-0.10) K/mm3 Abs Immat Gran (auto) 0.03 H (0.00-0.00) K/mm3 Absolute Neuts (auto) 5.70 (1.70-7.20) K/mm3 Absolute Nucleated RBC 0.00 (0.00-0.00) K/mm3 Nucleated RBC % 0.0 (0-0.0) % Sodium 136 (136-145) mmol/L Potassium 3.9 (3.5-5.1) mmol/L Chloride 101 (98-108) mmol/L Carbon Dioxide 22 (21-32) mmol/L Anion Gap 13 H (4-12) mmol/L BUN 16 (7-18) mg/dL Creatinine 0.74 (0.55-1.02) mg/dL Estim Creat Clear Calc 112 ml/min Estimated GFR > 60 (59 - ) Glucose 98 (70-99) mg/dL Calculated Osmolality 283 L (285-295) mOsm/kg Calcium 8.2 L (8.5-10.1) mg/dL Total Bilirubin 0.3 (0.00-1.00) mg/dL AST 10 L (15-37) U/L ALT 22 (14-59) U/L Alkaline Phosphatase 128 H (46-116) U/L Troponin I < 4.0 (0.00-60.4) ng/L Total Protein 6.6 (6.4-8.2) g/dL Albumin 3.3 L (3.4-5.0) g/dL Lipase 17 (16-77) U/L Serum HCG, Qual Negative ECG Data EKG #1: Interpretation: nsr rate [address] or t wave changes nl axis Discharge Plan Discharge Clinical Impression: Gastroenteritis Patient Disposition: Home, Self-Care Condition: Improved Instructions: Antibiotic Form, Gastroenteritis (ED) Patient Language: Sammarinese Prescriptions: New ondansetron 4 mg tablet,disintegrating 4 mg PO Q8H PRN (Reason: nausea and vomiting) Qty: 14 0RF famotidine [Pepcid] 20 mg tablet 20 mg PO BID Qty: 20 0RF No Action venlafaxine 150 mg capsule,extended release 24hr 300 mg PO DAILY Follow-up/Referrals: Jazmine,Gabriela Dobbins MD [Primary Care Provider] -
[2024-07-30] MEDS: ONDANSETRON INJ 4 MG/2 ML VIAL IV PUSH (16:54)
[2024-07-30] MEDS: SODIUM CHLORIDE 0.9% IV 1,000 ML 999 ML IV CONT (16:54)
[2024-07-30] MEDS: FAMOTIDINE 20 MG/2 ML VIAL IV PUSH (16:54)
[2024-07-30 17:00] VITALS: BP 125/72; PULSE 91; RESP 17; O2SAT 99
[2024-07-30 17:04] LABS: Basophils Absolute Auto 0.01 K/mm3 (0.00-0.10); Basophils Percent Auto 0.1 % (0.0-1.0); Hematocrit 39.8 % (35.0-49.0); Hemoglobin 12.9 g/dL (12.0-15.0); Immature Granulocyte Absolute 0.03 K/mm3 (0.00-0.00); Immature Granulocyte Percent A 0.4 % (0.0-0.0); Lymphocytes Absolute Auto 1.87 K/mm3 (1.10-4.50); Lymphocytes Percent Auto 23.1 % (18.0-42.0); Mean Corpuscular HGB Conc 32.4 g/dL (32-36); Mean Corpuscular Hemoglobin 29.1 pg (27.0-31.0); Mean Corpuscular Volume 89.6 fL (78.0-102.0); Mean Platelet Volume 9.2 fl (9.2-11.8); Monocytes Absolute Auto 0.47 K/mm3 (0.10-0.90); Monocytes Percent Auto 5.8 % (2.0-11.0); Neutrophils Percent Auto 70.6 % (50.0-70.0); Platelet Count Result 304 K/mm3 (150-420); Red Blood Count 4.44 M/mm3 (4.20-5.40); Red Cell Distribution Width 13.5 % (11.6-14.4); White Blood Count 8.1 K/mm3 (4.8-10.8)
[2024-07-30 17:16] LABS: SPREG INTERNAL CONTROL Positive; Serum Qual hCG Negative
[2024-07-30 17:23] LABS: Alanine Aminotransferase 22 U/L (14-59); Albumin Level 3.3 g/dL (3.4-5.0); Alkaline Phosphatase 128 U/L (46-116); Anion Gap 13 mmol/L (4-12); Aspartate Amino Transferase 10 U/L (15-37); Bilirubin,Total 0.3 mg/dL (0.00-1.00); Blood Urea Nitrogen 16 mg/dL (7-18); Calcium 8.2 mg/dL (8.5-10.1); Carbon Dioxide 22 mmol/L (21-32); Chloride 101 mmol/L (98-108); Estimated CRCL calculation 112 ml/min; Estimated Glomerular Filt Rate > 60; Glucose 98 mg/dL (70-99); Lipase 17 U/L (16-77); Osmolality Calculated 283 mOsm/kg (285-295); Potassium 3.9 mmol/L (3.5-5.1); Sodium 136 mmol/L (136-145); Total Protein 6.6 g/dL (6.4-8.2)
[2024-07-30 17:29] LABS: Troponin I < 4.0 ng/L (0.00-60.4)
[2024-07-30 17:30] VITALS: BP 122/68; PULSE 84; RESP 17; O2SAT 100
--- NOTE | 2024-07-30 17:35 | PC.NURSE ---
Patient reports nausea is gone but still having burning.
[2024-07-30] MEDS: MAG HYDROX/ALUMINUM HYD/SIMETH 30 ML, PHENobarb/HYOSCY/ATROPINE/SCOP 32.4 MG, LIDOCAINE... PO (17:41)
[2024-07-30 18:00] VITALS: BP 127/73; PULSE 81; RESP 17; O2SAT 98
[2024-07-30 18:15] VITALS: BP 127/73; PULSE 81; RESP 17; TEMP 36.6; O2SAT 98
== END 2024-07-30 18:15 | disposition home or self-care (01) ==
PROVIDERS: Emergency Provider Emergency Medicine; PCP Family Medicine
DX: K52.9 Noninfective gastroenteritis and colitis, unspecified (principal)
CPT/HCPCS: 36415; 80053; 83690; 84484; 84703; 85025; 93005; 96361; 96374; 96375; 99284; A9270; J2405; J7030

== ENCOUNTER 2024-08-02 07:06 | Emergency (ER) | payer OTHER, SELFPAY ==
--- NOTE | ~2024-08-02 | US_ITS ---
Limited Abdominal Sonogram: Real-time sonographic imaging of the right upper quadrant was performed. Clinical History: Right upper quadrant pain Findings: The liver appears mildly heterogeneous, with no evidence of mass lesion or bile duct dilat ation. Main portal vein demonstrates normal direction of flow. The gallbladder is well distended, and appears normal with no evidence of gallstone or wall thickening. The common bile duct measures 2 mm. The visualized pancreas, aorta, and IVC are unremarkable. Impression: Possible fatty infiltration of liver. Reviewed, dictated and finalized at location M. [employer] Impression: Possible fatty infiltration of liver.
[2024-08-02 07:07] VITALS: BP 127/93; PULSE 106; RESP 18; TEMP 36.4; O2SAT 99
--- NOTE | 2024-08-02 07:20 | ED_ITS ---
HPI - Abdominal Pain General Chief Complaint: Abdominal Pain Stated Complaint: gallbladder pain Time Seen by Provider: 08/02/24 07:08 Source: patient Mode of arrival: ambulatory Limitations: no limitations History of Present Illness HPI narrative: this is a 38-year-old female with no significant past medical history presents with a 3 day history of abdominal pain epigastric and right upper quadrant with nausea vomiting and diarrhea with no fever chills pain level at about a 3/10 with no chest pain no shortness of breath. Was seen 3 days ago diagnosed with gastroenteritis. MD elicited complaint: abdominal pain Onset (ago): day(s) Pain Consistency: intermittent Location: epigastric and RUQ Severity: mild Pain scale (0-10): 3 Migration to: no migration Exacerbating factors: nothing Relieving factors: nothing Related Data Home Medications ?Medication ?Instructions ?Recorded ?Confirmed ?Last Taken ?Type venlafaxine 150 mg 300 mg PO DAILY 02/18/24 07/30/24 Unknown History capsule,extended release 24 hr Allergies Allergy/AdvReac Type Severity Reaction Status Date / Time No Known Allergies Allergy Verified 08/02/24 07:10 Review of Systems Review of Systems: All systems reviewed & are unremarkable except as noted in HPI and below PMFSH Past Medical History Medical History Right ankle sprain Cellulitis Depression Family History Family History Other Family history of malignant neoplasm Social History Social History Smoking status: Current every day smoker Alcohol intake: never Substance use: never Exam Const: General: healthy appearing and no acute distress Nutritional Appearance: well nourished Orientation/consciousness: patient oriented x3 Limitations: no limitations Chest: Chest palpation & inspection: normal inspection of the chest Resp: Effort & Inspection: normal respiratory effort Auscultation: clear to auscultation bilaterally Cardio: Rate: regular rate Rhythm: regular rhythm GI: GI Palp: Yes Soft to palpation and Yes Tenderness to palpation present (GI) Auscultation: normal bowel sounds : General: Yes bladder normal to palpation Skin: General skin exam: normal color Rashes: no rashes Neuro: General: patient oriented x3 and moves all extremities Extrem: General: normal to inspection Course Course Emergency Course: Patient received Toradol for pain control after reassessment pain will has improved also received IV Zofran and IV Protonix. With IV fluids. CBCs CMP and the rest of labs obtained and reviewed with patient. Ultrasound reviewed And shows fatty liver disease. Vital Signs Vital signs: Vital Signs Temperature 36.4 C L 08/02/24 07:07 Pulse Rate 106 H 08/02/24 07:07 Respiratory Rate 18 08/02/24 07:07 Blood Pressure 127/93 H 08/02/24 07:07 Pulse Oximetry 99 08/02/24 07:07 Oxygen Delivery Room Air 08/02/24 07:07 Temperature 36.4 C L 08/02/24 07:07 Pulse Rate 106 H 08/02/24 07:07 Respiratory Rate 18 08/02/24 07:07 Blood Pressure 127/93 H 08/02/24 07:07 Pulse Oximetry 99 08/02/24 07:07 Oxygen Delivery Room Air 08/02/24 07:07 Critical Care Time Critical Care Time Critical Care Time: No Discharge Plan Discharge Clinical Impression: Gastroenteritis Patient Disposition: Home, Self-Care Condition: Stable Instructions: Antibiotic Form, Gastroenteritis (ED) Additional Instructions: advised to take medication as prescribed and follow up with primary within the next 3 to 4 days further evaluation treatment. Patient Language: Mongolian Prescriptions: New pantoprazole [Protonix] 40 mg tablet,delayed release (DR/EC) 40 mg PO QAM 28 Days Qty: 28 0RF ondansetron 4 mg tablet,disintegrating 4 mg PO Q6H PRN (Reason: nausea and vomiting) Qty: 10 0RF No Action venlafaxine 150 mg capsule,extended release 24hr 300 mg PO DAILY ondansetron 4 mg tablet,disintegrating 4 mg PO Q8H PRN (Reason: nausea and vomiting) Qty: 14 0RF famotidine [Pepcid] 20 mg tablet 20 mg PO BID Qty: 20 0RF Follow-up/Referrals: UNKNOWN,DOCTOR [Primary Care Provider] - Time of Disposition: 07:59
[2024-08-02 07:40] LABS: Basophils Absolute Auto 0.02 K/mm3 (0.00-0.10); Basophils Percent Auto 0.3 % (0.0-1.0); Hematocrit 41.2 % (35.0-49.0); Hemoglobin 13.7 g/dL (12.0-15.0); Immature Granulocyte Absolute 0.03 K/mm3 (0.00-0.00); Immature Granulocyte Percent A 0.4 % (0.0-0.0); Lymphocytes Absolute Auto 1.95 K/mm3 (1.10-4.50); Lymphocytes Percent Auto 26.5 % (18.0-42.0); Mean Corpuscular HGB Conc 33.3 g/dL (32-36); Mean Corpuscular Hemoglobin 29.3 pg (27.0-31.0); Mean Platelet Volume 8.9 fl (9.2-11.8); Monocytes Absolute Auto 0.35 K/mm3 (0.10-0.90); Monocytes Percent Auto 4.7 % (2.0-11.0); Neutrophils Absolute Auto 5.02 K/mm3 (1.70-7.20); Neutrophils Percent Auto 68.1 % (50.0-70.0); Platelet Count Result 310 K/mm3 (150-420); Red Blood Count 4.68 M/mm3 (4.20-5.40); Red Cell Distribution Width 13.4 % (11.6-14.4); White Blood Count 7.4 K/mm3 (4.8-10.8)
[2024-08-02 07:41] LABS: Add Urine Microscopic? NO; Appearance Urine Clear (Clear); Bilirubin Urine Negative (Negative); Blood Urine Negative (Negative); Color Urine Light Yellow (Yellow); Glucose Urine UA Negative (Negative); Ketones Urine Negative (Negative); Leukocyte Esterase Ur Negative LEU/UL (Negative); Nitrate Urine Negative (Negative); Protein Urine Negative (Negative); Specific Grav Ur 1.015 (1.010-1.020); Urobilinogen Urine 0.2 mg/dL (0.2-1.0); pH Urine 5.5 (5.0-8.0)
[2024-08-02] MEDS: SODIUM CHLORIDE 0.9% IV 1,000 ML 999 ML IV CONT (07:49)
[2024-08-02] MEDS: PANTOPRAZOLE SODIUM IV 40 MG VIAL IV PUSH (07:51)
[2024-08-02] MEDS: ONDANSETRON INJ 4 MG/2 ML VIAL IV PUSH (07:51)
[2024-08-02] MEDS: KETOROLAC 30 MG/ML VIAL (*BKC) IV PUSH (07:52)
[2024-08-02 07:54] LABS: Alanine Aminotransferase 37 U/L (14-59); Albumin Level 3.5 g/dL (3.4-5.0); Alkaline Phosphatase 114 U/L (46-116); Anion Gap 14 mmol/L (4-12); Aspartate Amino Transferase 18 U/L (15-37); Bilirubin,Total 0.3 mg/dL (0.00-1.00); Blood Urea Nitrogen 9 mg/dL (7-18); Calcium 8.9 mg/dL (8.5-10.1); Carbon Dioxide 22 mmol/L (21-32); Chloride 103 mmol/L (98-108); Estimated CRCL calculation 113 ml/min; Estimated Glomerular Filt Rate > 60; Glucose 102 mg/dL (70-99); Lipase 20 U/L (16-77); Osmolality Calculated 286 mOsm/kg (285-295); Sodium 139 mmol/L (136-145)
[2024-08-02 08:54] VITALS: BP 134/84; PULSE 82; RESP 16; TEMP 36.7; O2SAT 100
== END 2024-08-02 09:00 | disposition home or self-care (01) ==
LOC: CHSED 08:06
PROVIDERS: Emergency Provider Emergency Medicine; PCP Family Medicine
DX: K52.9 Noninfective gastroenteritis and colitis, unspecified (principal); F17.200 Nicotine dependence, unspecified, uncomplicated
CPT/HCPCS: 36415; 76705; 80053; 81003; 83690; 85025; 96361; 96374; 96375; 99284; J1885; J2405; J2470; J7030

== ENCOUNTER 2025-01-02 19:38 | Emergency (ER) | payer OTHER, SELFPAY ==
[2025-01-02 19:39] VITALS: BP 131/73; PULSE 84; RESP 18; TEMP 36.8; O2SAT 100
--- OUTSIDE RECORDS SUMMARY | 2025-01-02 19:40 | XMS_ITS | Encounter Summary ---
Author Organization [facility] Address [address] [place] [address] Care Team Providers Care Precinct Police Captain Name Role Phone Gabriela Lucero MD Primary Care Provider +1- [phone] Encounter Details Date Type Department Care Team (Late st Contact Info) Description 12/23/2018 Abstract SFL CONVERSION [address] [place] [address] , Generic Conversion, Social History Tobacco Use Types Packs/Day Years Used Date Smoking Tobacco: Never Assessed Comments Unknown Sex and Gender Information Value Date Recorded Sex Assigned at Not on file 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 Sex 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 Gender Identity Not on file Sexual Orientation Not on file documented as of this encounter Plan of Treatment Not on file documented as of this encounter Visit Diagnoses Not on filedocumented in this encounter Additional Health Concerns Infection Onset Date Last Indicated Resolved Time COVID-19 Rule Out 05/20/2020 05/20/2020 05/21/2020 11:10 AM CRYSTAL GAZER documented as of this encounter Care Teams Precinct Police Captain Relationship Specialty Start Date End Date Gabriela Lucero MD [address] [place] [phone] PCP - General FAMILY PRACTICE 04/09/22 documented as of this encounter
--- OUTSIDE RECORDS SUMMARY | 2025-01-02 19:40 | XMS_ITS | Clinical Summary ---
Author Organization [facility] Address [address] [place] [address] Care Team Providers Care Pressure Supervisor Name Role Phone Gabriela Lucero MD Primary Care Provider +1- [phone] Allergies No known active allergies Medications venlafaxine XR 150 MG 24 hr capsule Take 150 mg by mouth daily. Active Active Problems Problem Noted Date Diagnosed Date ([facility]) 05/22/2020 delivery delivered ([facility]) 01/18/2019 Resolved Problems Problem Noted Date Diagnosed Date Resolved Date ([facility]) 01/18/2019 01/21/20 19 Immunizations Immunization Administration Dates Next Due Tdap (Boostrix) 01/20/2019 Family History Medical History Relation Comments Diabetes Sister Relation Status Comments Sister Social History Tobacco Use Types Packs/Day Years Used Date Smoking Tobacco: Every Day Cigarettes Smokeless Tobacco: Current Tobacco Cessation:Ready to Q uit: No; Counseling Given: No Alcohol Use Standard Drinks/Week Comments No 0 (1 standard drink = 0.6 oz pur e alcohol) AUDIT-C Answer Date Recorded Frequency of Alcohol Consumption Never 01/18/2019 Average Number of Drinks Not on file 019 Frequency of Binge Drinking Not on file 10/2018 Comments No Sex and Gender Information Value Date Recorded Sex Assigned at Not on file 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 Gender Identity Not on file Sexual Orientation Not on file Last Filed Vital Signs Vital Sign Reading Time Taken Comments Blood Pressure 118/70 06/25/2021 7:36 PM DELIVERY TRUCK DRIVER Pulse 90 06/25/2021 7:36 PM DELIVERY TRUCK DRIVER Temperature 35.8 C (96.5 F) 06/25/2021 7:36 PM DELIVERY TRUCK DRIVER Respiratory Rate 18 06/25/2021 7:36 PM DELIVERY TRUCK DRIVER Oxygen Saturation 99% 06/25/2021 7:36 PM DELIVERY TRUCK DRIVER Inhaled Oxygen Concentration - - Weight 90.7 kg (200 lb) 06/25/2021 7:36 PM DELIVERY TRUCK DRIVER Height 170.2 cm (5' 7) 05/22/2020 6:52 AM DELIVERY TRUCK DRIVER Body Mass Index 31.32 05/22/2020 6:52 AM DELIVERY TRUCK DRIVER Plan of Treatment Health Maintenance Due Date Last Done Comments Cervical Cancer Screening Pap Smear (Age 30 to 64) Every 3 Years 1987 Annual Physical 10/08/1990 Hepatitis C 10/08/2005 Hepatitis B Vaccines (1 of 3 - 19+ 3-dose series) 10/08/2006 Pneumococcal Vaccine: Pediatrics (0 to 5 Years) and At-Risk Patients (6 to 49 Years) (1 of 2 - PCV) 10/08/2006 Cervical Cancer Screening Pap with HPV Testing (Age 30 to 64) Every 5 Years 10/08/2017 Cervical Cancer Screening with HPV 10/08/2017 COVID-19 Vaccine ( - 2023- season) 2024 DTaP, Tdap and Td Vaccines (2 - Td or Tdap) 01/20/2029 01/20/2019, 02/21/1992, 04/13/1988, Additional history exists HPV Vaccines Aged Out No longer eligi ble based on patient's age to complete this topic Meningococcal B Vaccine Aged Out No l onger eligible based on patient's age to complete this topic Meningococcal Vaccine Aged Out No christine shelley eligible based on patient's age to complete this topic RSV Immunizations Under 20 Months Aged Out No longer eligible based on patient's age to complete this topic Insurance [employer]ETNA Advance Directives * Full Code (Latest Code Status on File) Date Activated Date Inactivated Comments 05/22/2020 6:44 AM 05/23/2020 8:12 PM * Full Code Date Activated Date Inactivated Comments 01/18/2019 2:41 PM 01/20/2019 1:02 PM Care Teams Pressure Supervisor Relationship Specialty Start Date End Date Gabriela Lucero MD [address] [place] [phone] PCP - General FAMILY PRACTICE 04/09/22
--- OUTSIDE RECORDS SUMMARY | 2025-01-02 19:40 | XMS_ITS | Encounter Summary ---
Author Organization [facility] Address [address] [place] [address] Care Team Providers Care Director Business Management Name Role Phone Gabriela Lucero MD Primary Care Provider +1- [phone] Encounter Details Date Type Department Care Team (Late st Contact Info) Description 01/15/2019 Hospital Orders Only [facility] [address] [place] [address] Alecia Colmenares, RN Social History Tobacco Use Types Packs/Day Years Used Date Smoking Tobacco: Never Assessed AUDIT-C Answer Date Recorded Frequency of Alcohol Consumption Never 01/18/2019 Average Number of Drinks Not on file 019 Frequency of Binge Drinking Not on file 10/2018 Comments Unknown Sex and Gender Information Value Date Recorded Sex Assigned at Not on file 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 Gender Identity Not on file Sexual Orientation Not on file documented as of this encounter Functional Status documented as of this encounter Plan of Treatment Not on file documented as of this encounter Visit Diagnoses Not on filedocumented in this encounter Additional Health Concerns Infection Onset Date Last Indicated Resolved Time COVID-19 Rule Out 05/20/2020 05/20/2020 05/21/2020 11:10 AM DRY CLEANER APPRENTICE documented as of this encounter Care Teams Director Business Management Relationship Specialty Start Date End Date Gabriela Lucero MD [address] [place] [phone] PCP - General FAMILY PRACTICE 04/09/22 documented as of this encounter
--- NOTE | 2025-01-02 19:53 | ED.HA ---
HPI - Headache General Chief Complaint: Headache Stated Complaint: HEADACHE Time Seen by Provider: 01/02/25 19:53 Source: patient Mode of arrival: ambulatory Limitations: no limitations History of Present Illness HPI Narrative: 39-year-old female, smoker with a history of anxiety / depression presents to the ED with a 12 hour history of -- headache- generalized. Patient has a history of migraine and has headaches 3 to 4 times a week. -- Nausea without any vomiting -- photophobia. no aura prior to the headache. This is similar to her usual headaches. No fever. No focal neuro deficits. MD elicited complaint: headache and migraine Onset (ago): hour(s) ( 12 hours) Onset description: gradually Location: generalized Severity: moderate Quality & Timing: aching and throbbing Exacerbating factors: none Relieving factors: nothing Context: occurred at rest Associated symptoms: nausea and photophobia Treatments prior to arrival: none Related Data Home Medications ?Medication ?Instructions ?Recorded ?Confirmed ?Last Taken ?Type venlafaxine 150 mg 300 mg PO DAILY 02/18/24 07/30/24 Unknown History capsule,extended release 24 hr Allergies Allergy/AdvReac Type Severity Reaction Status Date / Time No Known Allergies Allergy Verified 08/02/24 10:46 Review of Systems Review of Systems: All systems reviewed & are unremarkable except as noted in HPI and below PMFSH Past Medical History Medical History Right ankle sprain Cellulitis Depression Family History Family History Other Family history of malignant neoplasm Social History Social History Smoking status: Current every day smoker Alcohol intake: never Substance use: never Exam Narrative: vitals are stable. Const: General: healthy appearing and no acute distress Nutritional Appearance: well nourished Orientation/consciousness: patient oriented x3 Limitations: no limitations HENMT: Head: normal to inspection Ears: external ears normal Face/Nose/Sinus: Normal external nose present Face and sinus: normal facial exam Mouth: Yes Normal oral and palatal mucosa present Throat: posterior oropharynx normal Eyes: Conjunctivae: conjunctivae normal Pupils: Equal, round and reactive pupils present EOM: EOMs intact bilaterally Direct Ophthalmoscopy: no photophobia Neck: Neck: normal visual inspection, no lymphadenopathy and no meningeal signs Chest: Chest palpation & inspection: normal inspection of the chest Resp: Effort & Inspection: normal respiratory effort Auscultation: clear to auscultation bilaterally Cardio: Rate: regular rate Rhythm: regular rhythm GI: GI Palp: Yes Soft to palpation Auscultation: normal bowel sounds Other: No tenderness/ rigidity /rebound. : General: Yes no CVA tenderness Back/Spine/Pelvis: Back: no CVA tenderness Skin: General skin exam: normal color Rashes: no rashes Wounds: no wounds Neuro: General: patient oriented x3, moves all extremities, no meningeal signs, no focal motor deficits and CN's II-XI intact bilaterally Cranial nerves: Yes Nystagmus not present Speech: normal speech Extrem: General: normal to inspection and no clubbing, cyanosis or edema Psych: Mental Status: mental status grossly normal Affect: normal affect Course Course Emergency Course: Common migraine-- patient was prescribed CGRP inhibitors in the past. unable to get it secondary to non approval from insurance. improved with Toradol and Compazine Vital Signs Vital signs: Vital Signs Temperature 36.8 C 01/02/25 19:39 Pulse Rate 84 01/02/25 19:39 Respiratory Rate 18 01/02/25 19:39 Blood Pressure 131/73 01/02/25 19:39 Pulse Oximetry 100 01/02/25 19:39 Oxygen Delivery Room Air 01/02/25 19:39 Temperature 36.8 C 01/02/25 19:39 Pulse Rate 84 01/02/25 19:39 Respiratory Rate 18 01/02/25 19:39 Blood Pressure 131/73 01/02/25 19:39 Pulse Oximetry 100 01/02/25 19:39 Oxygen Delivery Room Air 01/02/25 19:39 MDM - Headache MDM Narrative Medical decision making narrative: Common migraine Differential Diagnosis Differential diagnosis: Likely tension headache and subarachnoid hemorrhage Medical Records Attestation: I reviewed the patient's medical records. Lab Data Attestation: I reviewed the patient's lab results. Discharge Plan Discharge Clinical Impression: Migraine Patient Disposition: Home Condition: Stable Instructions: Antibiotic Form, Migraine Headache (ED) Patient Language: [place] Prescriptions: No Action venlafaxine 150 mg capsule,extended release 24hr 300 mg PO DAILY pantoprazole [Protonix] 40 mg tablet,delayed release (DR/EC) 40 mg PO QAM 28 Days Qty: 28 0RF ondansetron 4 mg tablet,disintegrating 4 mg PO Q6H PRN (Reason: nausea and vomiting) Qty: 10 0RF ondansetron 4 mg tablet,disintegrating 4 mg PO Q8H PRN (Reason: nausea and vomiting) Qty: 14 0RF famotidine [Pepcid] 20 mg tablet 20 mg PO BID Qty: 20 0RF Follow-up/Referrals: Jazmine,Gabriela Dobbins MD [Primary Care Provider] - Time of Disposition: 21:04
--- NOTE | 2025-01-02 19:56 | PC.NURSE ---
DR KOROMA AT THE BEDSIDE
[2025-01-02] MEDS: PROCHLORPERAZINE EDISYLATE 10 MG/2 ML VIAL IM (20:11)
[2025-01-02] MEDS: KETOROLAC 30 MG/ML VIAL (*BKC) IM (20:11)
--- OUTSIDE RECORDS SUMMARY | 2025-01-02 20:15 | XMS_ITS | Clinical Summary ---
Author Organization [facility] Address [address] [place] [address] Care Team Providers Care Machine Operator Cane Cutter Name Role Phone Gabriela Lucero MD Primary Care Provider +1- [phone] Allergies No known active allergies Medications venlafaxine XR 150 MG 24 hr capsule Take 150 mg by mouth daily. Active Active Problems Problem Noted Date Diagnosed Date ([facility]) 05/22/2020 delivery delivered ([facility]) 01/18/2019 Resolved Problems Problem Noted Date Diagnosed Date Resolved Date ([facility]) 01/18/2019 01/21/20 19 Immunizations Immunization Administration Dates [...] on file Legal Sex Female 5:59 PM GRIDDLE COOK Gender Identity Not on file Sexual Orientation Not on file Last Filed Vital Signs Vital Sign Reading Time Taken Comments Blood Pressure 118/70 06/25/2021 7:36 PM GRIDDLE COOK Pulse 90 06/25/2021 7:36 PM GRIDDLE COOK Temperature 35.8 C (96.5 F) 06/25/2021 7:36 PM GRIDDLE COOK Respiratory Rate 18 06/25/2021 7:36 PM GRIDDLE COOK Oxygen Saturation 99% 06/25/2021 7:36 PM GRIDDLE COOK Inhaled Oxygen Concentration - - Weight 90.7 kg (200 lb) 06/25/2021 7:36 PM GRIDDLE COOK Height 170.2 cm (5' 7) 05/22/2020 6:52 AM GRIDDLE COOK Body Mass Index 31.32 05/22/2020 6:52 AM GRIDDLE COOK Plan of Treatment Health Maintenance Due Date [...] 2:41 PM 01/20/2019 1:02 PM Care Teams Machine Operator Cane Cutter Relationship Specialty Start Date End Date Gabriela Lucero MD [address] [place] [phone] PCP - General FAMILY PRACTICE 04/09/22
--- OUTSIDE RECORDS SUMMARY | 2025-01-02 20:15 | XMS_ITS | Encounter Summary ---
Author Organization [facility] Address [address] [place] [address] Care Team Providers Care Accounting Clerks Supervisor Name Role Phone Gabriela Lcuero MD Primary Care Provider +1- [phone] Encounter Details Date Type Department Care Team (Late st Contact Info) Description 01/15/2019 Hospital Orders Only [facility] [address] 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 Gender Identity Not on file Sexual Orientation Not on file documented as of this encounter Functional Status documented as of this encounter Plan of Treatment Not on file documented as of this encounter Visit Diagnoses Not on filedocumented in this encounter Additional Health Concerns Infection Onset Date Last Indicated Resolved Time COVID-19 Rule Out 05/20/2020 05/20/2020 05/21/2020 11:10 AM NETWORK RELAY TESTER documented as of this encounter Care Teams Accounting Clerks Supervisor Relationship Specialty Start Date End Date Gabriela Lucero MD [address] [place] [phone] PCP - General FAMILY PRACTICE 04/09/22 documented as of this encounter
[2025-01-02 21:08] VITALS: BP 126/74; PULSE 82; RESP 18; O2SAT 100
== END 2025-01-02 21:08 | disposition home or self-care (01) ==
PROVIDERS: Emergency Provider Internal Medicine Critical Care Medicine; PCP Family Medicine
DX: G43.909 Migraine, unspecified, not intractable, without status migrainosus (principal)
CPT/HCPCS: 96372; 99284; J0780; J1885

== ENCOUNTER 2025-03-24 19:10 | Emergency (ER) | payer SELFPAY ==
[2025-03-24 19:10] VITALS: BP 134/91; PULSE 95; RESP 18; TEMP 36.6; O2SAT 97
--- NOTE | 2025-03-24 19:32 | ED.GENADULT ---
HPI - General Adult General Chief complaint: Urogenital-Female Stated complaint: urine pain Time Seen by Provider: 03/24/25 19:14 History of Present Illness HPI narrative: Janie is a 39F with a PMH of depression that presented to the ED with burning, urinary frequency, and RLQ pain. She also found out her significant other is treating on her. She states this feels like a previous episode of chlamydia. No N/V, fevers, diarrhea and she only had 1 episode of vaginal discharge. LMS ended at the end of last month. Related Data Home Medications ?Medication ?Instructions ?Recorded ?Confirmed ?Last Taken ?Type bupropion HCl 150 mg 24 hr tablet, 150 mg PO DAILY 03/24/25 Unknown History extended release bupropion HCl 300 mg 24 hr tablet, 300 mg PO DAILY 03/24/25 Unknown History extended release Allergies Allergy/AdvReac Type Severity Reaction Status Date / Time No Known Allergies Allergy Verified 03/24/25 19:18 Review of Systems Review of Systems: All systems reviewed & are unremarkable except as noted in HPI and below PMFSH Past Medical History Medical History Right ankle sprain Cellulitis Depression Family History Family History Other Family history of malignant neoplasm Social History Social History Smoking status: Current every day smoker Alcohol intake: never Substance use: never Exam Const: General: cooperative, healthy appearing, comfortable, no acute distress, well developed, alert, awake and Physically active Orientation/consciousness: oriented to person, oriented to place and oriented to time HENMT: Head: normal to inspection, normocephalic and atraumatic Ears: hearing grossly normal bilaterally and external ears normal Face/Nose/Sinus: Normal external nose present Eyes: General: appearance normal, both eyes and all related structures Periorbital: periorbital findings normal Sclera: sclerae normal Pupils: Equal, round and reactive pupils present Neck: Neck: normal visual inspection Chest: Chest palpation & inspection: normal inspection of the chest Resp: Effort & Inspection: normal respiratory effort, able to speak in complete sentences and no respiratory distress Cardio: Jugular venous distension: no JVD GI: Inspection: normal to inspection GI Palp: Yes Soft to palpation Auscultation: normal bowel sounds Other: No abdominal pain or guarding on palpation. Normal bowel sounds. Negative obturator sign. : External Female Exam: normal external appearance Speculum Exam - Vagina: normal appearance of the vagina and normal vaginal discharge Speculum Exam - Cervix: normal appearance of the cervix Skin: General skin exam: normal color and no rashes or lesions noted Neuro: General: oriented to person, oriented to place and oriented to time Cranial nerves: Yes Equal, round and reactive pupils present Extrem: General: normal to inspection Course Course Emergency Course: UA unremarkable Sent out STI testing Vital Signs Vital signs: Vital Signs Temperature 97.8 F 03/24/25 19:10 Pulse Rate 95 03/24/25 19:10 Respiratory Rate 18 03/24/25 19:10 Blood Pressure 134/91 H 03/24/25 19:10 Pulse Oximetry 97 03/24/25 19:10 Oxygen Delivery Room Air 03/24/25 19:10 Temperature 97.8 F 03/24/25 19:10 Pulse Rate 95 03/24/25 19:10 Respiratory Rate 18 03/24/25 19:10 Blood Pressure 134/91 H 03/24/25 19:10 Pulse Oximetry 97 03/24/25 19:10 Oxygen Delivery Room Air 03/24/25 19:10 Medical Decision Making Vital Signs Vital Signs: Vital Signs Temperature 97.8 F 03/24/25 19:10 Pulse Rate 95 03/24/25 19:10 Respiratory Rate 18 03/24/25 19:10 Blood Pressure 134/91 H 03/24/25 19:10 Pulse Oximetry 97 03/24/25 19:10 Oxygen Delivery Room Air 03/24/25 19:10 Temperature 97.8 F 03/24/25 19:10 Pulse Rate 95 03/24/25 19:10 Respiratory Rate 18 03/24/25 19:10 Blood Pressure 134/91 H 03/24/25 19:10 Pulse Oximetry 97 03/24/25 19:10 Oxygen Delivery Room Air 03/24/25 19:10 Lab Data Labs: Lab Results 03/24/25 Range/Units 19:25 Urine Color Pending Urine Appearance Pending Urine pH Pending Ur Specific [place] Pending Urine Protein Pending Urine Glucose (UA) Pending Urine Ketones Pending Ur Blood (Man) Pending Urine Nitrate Pending Urine Bilirubin Pending Urine Urobilinogen Pending Leukocyte Esterase Rfl Pending Urine Test Pending C. trachomatis (JAKE) Pending N. gonorrhoeae (JAKE) Pending Discharge Plan Discharge Clinical Impression: Possible exposure to STI Patient Disposition: Home Condition: Stable Instructions: Sexually Transmitted Diseases (ED) Patient Language: Scottish Prescriptions: New doxycycline hyclate 100 mg tablet 100 mg PO DAILY Qty: 14 0RF metronidazole 500 mg tablet 500 mg PO BID Qty: 14 0RF doxycycline hyclate 100 mg tablet 100 mg PO BID Qty: 14 0RF No Action bupropion HCl 300 mg tablet extended release 24 hr 300 mg PO DAILY bupropion HCl 150 mg tablet extended release 24 hr 150 mg PO DAILY Follow-up/Referrals: Jazmine,Gabriela Dobbins MD [Primary Care Provider, Unknown]
[2025-03-24 19:33] LABS: Add Urine Microscopic? NO; Appearance Urine Clear (Clear); Glucose Urine UA Negative (Negative); Leukocyte Esterase Ur Negative LEU/UL (Negative); Nitrate Urine Negative (Negative); Specific Grav Ur 1.020 (1.010-1.020)
[2025-03-24 19:34] LABS: Pregnancy On Board Control Positive
[2025-03-24] MEDS: KETOROLAC 30 MG/ML VIAL (*BKC) IM (19:36)
[2025-03-24 19:56] LABS: Hematocrit 38.7 % (35.0-49.0); Hemoglobin 12.7 g/dL (12.0-15.0); Immature Granulocyte Percent A 0.3 % (0.0-0.0); Lymphocytes Absolute Auto 1.99 K/mm3 (1.10-4.50); Mean Corpuscular HGB Conc 32.8 g/dL (32-36); Mean Corpuscular Hemoglobin 30.4 pg (27.0-31.0); Mean Corpuscular Volume 92.6 fL (78.0-102.0); Nucleated Red Blood Cells Absolute Auto 0.00 K/mm3 (0.00-0.00); Nucleated Red Blood Cells Perc 0.0 % (0-0.0); Platelet Count Result 272 K/mm3 (150-420); Red Blood Count 4.18 M/mm3 (4.20-5.40); White Blood Count 7.3 K/mm3 (4.8-10.8)
[2025-03-24 20:06] LABS: INR 1.0; Prothrombin Time 10.6 Seconds (9.50-12.1)
[2025-03-24 20:07] LABS: Alanine Aminotransferase 18 U/L (6-35); Albumin Level 4.4 g/dL (3.5-5.1); Alkaline Phosphatase 78 U/L (38-126); Anion Gap 10 mmol/L (4-12); Aspartate Amino Transferase 19 U/L (14-36); Bilirubin,Total 0.5 mg/dL (0.2-1.3); Blood Urea Nitrogen 12 mg/dL (7-17); CRP < 0.5 mg/dL (<1.0); Calcium 9.3 mg/dL (8.4-10.2); Carbon Dioxide 19 mmol/L (22-30); Chloride 112 mmol/L (98-107); Estimated CRCL calculation 83 ml/min; Estimated Glomerular Filt Rate > 60; Glucose 87 mg/dL (65-110); Lipase 43 U/L (23-300); Osmolality Calculated 290 mOsm/kg (285-295); Potassium 3.9 mmol/L (3.4-5.0); Sodium 141 mmol/L (137-145); Total Protein 6.9 g/dL (6.3-8.2)
[2025-03-24 20:43] VITALS: BP 138/78; RESP 18; O2SAT 100
--- NOTE | 2025-03-24 20:45 | PC.NURSE ---
Pt resting, pt setup for pelvic exam.
[2025-03-24] MEDS: cefTRIAXone 1 GM VIAL IM (21:13)
[2025-03-24 21:24] VITALS: BP 131/70; PULSE 71; RESP 20; TEMP 36.6; O2SAT 99
[2025-03-24 21:38] LABS: Trichomonas Negative (Negative); Trichomonas Source Vaginal (Female)
== END 2025-03-24 21:24 | disposition home or self-care (01) ==
PROVIDERS: Emergency Provider Family Medicine; PCP Family Medicine
DX: R30.0 Dysuria (principal); R10.31 Right lower quadrant pain; Z79.899 Other long term (current) drug therapy; F17.200 Nicotine dependence, unspecified, uncomplicated; Z11.3 Encounter for screening for infections with a predominantly sexual mode of transmission
CPT/HCPCS: 36415; 80053; 81003; 81025; 83605; 83690; 85025; 85610; 86140; 87210; 87491; 87591; 96372; 99284; J0696; J1885; J2003